=== PATIENT | female | born 1990 | race Caucasian/White ===

== ENCOUNTER 2021-11-05 10:47 | Outpatient (CLI) | payer BC, SELFPAY ==
--- OUTSIDE RECORDS SUMMARY | 2021-11-05 11:01 | XMS_ITS | Clinical Summary ---
:1990 Author Organization [facility] [place] [address] Care Team Providers Name Role Phone Luana Rushing MD Primary Care Provider [phone] Allergies Active Allergy Reactions Severity Noted Date Comments Amoxicillin Shortness Of Breath High 04/24/2012 Penicillins Hives High 04/24/2012 Medications No known medications Active Problems Problem Noted Date Tension headache 03/08/2017 History of concussion Cluster headaches Resolved Problems Problem Noted Date Resolved Date Cluster headaches 03/08/2017 Immunizations Name Administration Dates Next Due DTaP 03/19/1994, 09/20/1990, 1989, 1989, 1989 Hepatitis B (Peds) 02/25/2006, 02/25/2005, 10/28/1999 Hib Conjugate, Unspecified 04/30/1990, 03/04/1990, 0 Human Papilloma Virus Vaccine 10/31/2006, 07/07/2006, 2006 Inactivated Polio Vaccine 03/19/1994, 09/20/1990, 1989 , 1989 Influenza, IIV4 04/05/2012 MMR 03/19/1994, 04/30/1990 Meningococcal Vaccine (Menactra) 04/27/2006 Meningococcal Vaccine (Menomune) 04/27/2006 Td (Age >=7 Years) 07/21/2001 Tdap 07/01/2017, 04/11/2007 Family History Medical History Relation Name Comments Thyroid Disease Brother HIV Father Cancer-colon Mother Clotting disorder Mother Thyroid Disease Mother Thyroid Disease Sister Cancer-breast No Family History Relation Name Status Comments Brother Father Mother Sister Social History Tobacco Use Types Packs/Day Years Used Date Former Smoker Cigarettes 9 Smokeless Tobacco: Never Used Alcohol Use Standard Drinks/Week Comments No 0 (1 standard drink = 0.6 oz pure alcoho l) Sex Assigned at Date Recorded Not on file Obstetrics History Para Term AB IAB SAB Ectopic Multiple Living Live Births 1 Date Outcome GA Total Labor/2nd/3rd Weight Sex Delivery Anes PTL Justina A 1 A5 Name Clin Labor Last Filed Vital Signs Vital Sign Reading Time Taken Comments Blood Pressure 110/70 08/01/2018 12:46 PM CDT Pulse 76 08/01/2018 12:46 PM CDT Temperature 37.2 ??C (99 ??F) 11/16/2017 1:09 PM CDT Respiratory Rate 12 08/01/2018 12:46 PM CDT Oxygen Saturation 97% 11/16/2017 1:09 PM CDT Inhaled Oxygen Concentration - - Weight 87.1 kg (192 lb) 04/25/2018 10:08 AM CDT Height 163.8 cm (5' 4.5) 04/25/2018 10:08 AM CDT Body Mass Index 32.45 04/25/2018 10:08 AM CDT Plan of Treatment Health Maintenance Due Date Last Done Comments COVID-19 vaccine series (#1) 1990 Hepatitis C screening for age 18-79 2007 Pap test for age 21-65 07/09/2017 07/09/2014 (Completed out side of [facility]) BMI (ht and wt on same day) for age 0304/26/2019 04/25/2018, 11/16/2017, 18+ 03/08/2017 Depression screening for age 12+ 04/26/2019 04/25/2018, Influenza for age 9-49 10/15/2021 04/05/2012 Tetanus booster 07/02/2027 07/01/2017, 04/11/2007, 07/21/2001 Tdap Completed 07/01/2017, 04/11/2007 Results Not on filefrom Last 3 Months Insurance Payer Benefit Plan / Subscriber ID Effective Dates Phone Addre ss Type Group [employer] [place] [employer] [id number] 2018-Present [address] [address] [place] [address] Care Teams Melt Helper Relationship Specialty Start Date End Date Luana Rushing MD PCP - General Family Practice 08/01/[address] [place] [address]
--- OUTSIDE RECORDS SUMMARY | 2021-11-05 11:01 | XMS_ITS ---
:1990 External Reference #:[id number] Author Allergies Code Code System Name Reaction Severity Status Onset 723 RxNorm Amoxicillin Hives Severe Active ? Penicillins Hives Severe Active ? Medications Name Status Start Date Stop Date ? ? Childrens Vitamin Completed ? 04/12/2017 clindamycin HCl 300 mg capsule Completed ? 0 04/12/2017 ondansetron 4 mg disintegrating tablet Completed ? 04/16/2020 Pitocin 10 unit/mL injection solution Completed ? 02/19/2021 Take 10 units as needed by injection route as needed for 1 day. + DHA Active ? Not available Problems Name Status Onset Date Source ? Unknown 09/22/2015 ? Unknown 04/12/2017 ? Unknown 04/16/2020 ? Procedures Date Name Performed by ? 04/12/2017 US, Obstetric, 1St Trimester Facilities [facility] [address] [place] [address] (Work Place) 04/16/2020 US, Obstetric, Limited [facility] [address] [facility] [address] [place], [place] [address] (Work Place) 04/18/2020 US, Obstetric, Limited [facility] [address] [facility] [address] [place], [place] [address] (Work Place) 06/26/2020 US, Obstetric In-House Results For Internal Use Onl y Do Not Delete/merge [id number] Notes: [place] teeth extraction Results Lab Results Date Name Specimen Result Interpretation Description Value Range Status Address ? 02/19/2021 Hemoglobin Blood ? Hemoglobin 14.3 ? ? In-House (Hb), Blood capillary Re sults: For Internal U se Only, Do N ot Delete/clif ge 11/20/2020 Streptococcus Vaginal ? Culture, see note ? [facility] Group B, Group B Strep l D iagnostics - Culture, with Akash Escobar Unspecified Susceptibility Lab: [address], [place] 09/01/2020 Hemoglobin Blood ? Hemoglobin 11.8 ? ? In-House (Hb), Blood capillary Re sults: For Internal U se Only, Do N ot Delete/clif ge 09/01/2020 Glucose Blood ? Result after 108 ? ? In-House Tolerance capillary 50Gm Resu lts: For Test, Internal U se Gestational, Only , Do Not 1-Hour Delete/clif ge 04/16/2020 Obstetric Blood Ashley White Blood 5.4 3.8-1 [facility] Screen, Serum venous l Cell Count thousand 0.8 l Diagnostics - or Blood /uL thous Wood Anatoliy e and/u Lab: [address], [place] ? ? Blood Ashley Red Blood 4.27 3.80- [facility] venous l Cell Count million/ 5.10 l Diag nostics - uL ciera [place] on/uL Lab: [address], [place] ? ? Blood Ashley Hemoglobin 13.4 11.7- [facility] venous l g/dL 15.5 l Diagnostic s - g/dL [place] Lab: [address], [place] ? ? Blood Ashley Hematocrit 38.8 % 35.0- [facility] venous l 45.0 l Diagnostic s - % [place] Lab: [address], [place] ? ? Blood Ashley Mcv 90.9 fL 80.0- [facility] venous l 100.0 l Diagnostic s - fL [place] Lab: [address], [place] ? ? Blood Ashley Mch 31.4 pg 27.0- [facility] venous l 33.0 l Diagnostic s - pg [place] Lab: [address], [place] ? ? Blood Ashley Mchc 34.5 32.0- [facility] venous l g/dL 36.0 l Diagnostic s - g/dL [place] Lab: [address], [place] ? ? Blood Ashley Rdw 11.6 % 11.0- [facility] venous l 15.0 l Diagnostic s - % [place] Lab: [address], [place] ? ? Blood Ashley Platelet 268 140-4 [facility] venous l Count thousand 00 l Diagnost ics - /uL thous [place] and/u Lab: [address], [place] ? ? Blood Ashley Mpv 10.7 fL 7.5-1 [facility] venous l 2.5 l Diagnostic s - fL [place] Lab: [address], [place] ? ? Blood Ashley Absolute 3602 1500- [facility] venous l Neutrophils cells/uL 7800 l [facility] - cells [place] /uL Lab: [address], [place] ? ? Blood Ashley Absolute 1285 850-3 [facility] venous l Lymphocytes cells/uL 900 l [facility] - cells [place] /uL Lab: [address], [place] ? ? Blood Ashley Absolute 292 200-9 [facility] venous l Monocytes cells/uL 50 l Diagn ostics - cells [place] /uL Lab: [address], [place] ? ? Blood Ashley Absolute 200 15-50 [facility] venous l Eosinophils cells/uL 0 l [facility] - cells [place] /uL Lab: [address], [place] ? ? Blood Ashley Absolute 22 0-200 [facility] venous l Basophils cells/uL cells l Diagn ostics - /uL [place] Lab: [address], [place] ? ? Blood Ashley Neutrophils 66.7 % ? Lexy Ques t venous l l Diagnostic s - [place] Lab: [address], [place] ? ? Blood Ashley Lymphocytes 23.8 % ? Lex[facility] Ques t venous l l Diagnostic s - [place] Lab: [address], [place] ? ? Blood Ashley Monocytes 5.4 % ? [facility] venous l l Diagnostic s - [place] Lab: [address], [place] ? ? Blood Ashley Eosinophils 3.7 % ? Lex[facility] Ques t venous l l Diagnostic s - [place] Lab: [address], [place] ? ? Blood Ashley Basophils 0.4 % ? [facility] venous l l Diagnostic s - [place] Lab: [address], [place] ? ? Blood Ashley Antibody no ? [facility] venous l Screen, RBC antibodi l [facility] - W/refl Id, es Wood D jorge Titer and Ag detected La b: [address], [place] ? ? Blood ? ABO Group O ? [facility] venous l Diagnostic s - [place] Lab: [address], [place] ? ? Blood ? Rh Type Rh(D) ? [facility] venous positive l Diagnost ics - [place] Lab: [address], [place] ? ? Blood Ashley RPR (DX) non-reac non-r [facility] venous l W/refl Titer tive eacti l Diag nostics - and ve [place] Confirmatory Lab: [address], [place] ? ? Blood Ashley Hepatitis B non-reac non-r Lex[facility] Qu est venous l Surface tive eacti l Diagnosti cs - Antigen ve [place] Lab: [address], [place] ? ? Blood Ashley Rubella Ab 17.10 ? [facility] venous l (IgG), Immune index l [facility] - Status [place] Lab: [address], [place] 04/16/2020 HIV 1+2 Ab + Blood Ashley HIV Ag/Ab, non-reac non-r [facility] HIV1 P24 Ag, venous l 4TH Gen tive eacti l [facility] - Quantitative [facility] Immunoassay, Lab: [address], [place] 04/16/2020 CT + NG RNA, Urine ? Chlamydia not not Fin a [facility] PCR, Vaginal Trachomatis detected detec l Diagnostics - RNA, [facility] [address], [place] ? ? Urine ? Neisseria not not Lex[facility] Parkt Gonorrhoeae detected detec l [facility] - RNA, segundo Sheriff Urogenital Lab: [address], [place] 04/16/2020 Hepatitis C Blood Ashley Hepatitis C non-reac non-r [facility] Virus Ab, venous l Antibody tive eacti l Diagn ostics - Serum ve [place] Lab: [address], [place] ? ? Blood Ashley Index 0.14 <1.00 [facility] venous l l Diagnostic s - [place] Lab: [address], [place] 04/16/2020 beta-HCG, Blood High HCG, Total, 8741 ? [facility] Quantitative, venous Qn mIU/mL l [facility] - Serum or Anatoliy e Plasma Lab: [address], [place] 04/16/2020 HbA1C Blood Ashley Hemoglobin 4.9 % of <5.7 [facility] (Hemoglobin venous l a1C total % of l Diagn ostics - a1C), Blood HGB total [place] HGB Lab: [address], [place] 04/16/2020 Culture, Urine Urine ? Culture, see note ? [facility] Urine, Routine l Di agnostics - [place] Lab: [address], [place] 11/14/2017 Streptococcus Vaginal ? Streptococcus see note ? [facility] Group B, , Group B l Diagn ostics - Culture, Culture Wood Da le Unspecified Lab: [address], [place] 09/08/2017 Glucose ? Result after 130 ? ? In-House Tolerance 50Gm Results : For Test, Internal U se Gestational, Only , Do Not 1-Hour Delete/clif ge 09/08/2017 Hemoglobin ? Hemoglobin 11.5 ? ? In-House (Hb), Blood Resul ts: For Internal U se Only, Do N ot Delete/clif ge 05/18/2017 Aneuploidy Whole Ashley 2816 normal ? [facility] Risk and X & Y Blood l l Analysis, Chromosome Specific Circulating Cell Free (CCF) DNA, Maternal Serum ? ? Whole Ashley Chromosome 21 negative ? Lexy Blood l l ? ? Whole Ashley Chromosome 18 negative ? [facility] Blood l l ? ? Whole Ashley Chromosome 13 negative ? Lex[facility] Blood l l ? ? Whole Ashley Sex negative ? Lex[facility] Blood l Chromosomes l 04/12/2017 Obstetric Blood Ashley White Blood 7.5 3.8-1 [facility] Screen, Serum venous l Cell Count thousand 0.8 l Diagnostics - or Blood /uL thous Anatoliy e and/u Lab: [address], [place] ? ? Blood Ashley Red Blood 4.26 3.80- [facility] venous l Cell Count million/ 5.10 l Diag nostics - uL ciera [place] on/uL Lab: [address], [place] ? ? Blood Ashley Hemoglobin 12.8 11.7- [facility] venous l g/dL 15.5 l Diagnostic s - g/dL [place] Lab: [address], [place] ? ? Blood Ashley Hematocrit 38.1 % 35.0- [facility] venous l 45.0 l Diagnostic s - % [place] Lab: [address], [place] ? ? Blood Ashley Mcv 89.4 fL 80.0- [facility] venous l 100.0 l Diagnostic s - fL [place] Lab: [address], [place] ? ? Blood Ashley Mch 30.0 pg 27.0- [facility] venous l 33.0 l Diagnostic s - pg [place] Lab: [address], [place] ? ? Blood Ashley Mchc 33.6 32.0- [facility] venous l g/dL 36.0 l Diagnostic s - g/dL [place] Lab: [address], [place] ? ? Blood Ashley Rdw 12.1 % 11.0- [facility] venous l 15.0 l Diagnostic s - % [place] Lab: [address], [place] ? ? Blood Ashley Platelet 321 140-4 [facility] venous l Count thousand 00 l Diagnost ics - /uL thous [place] and/u Lab: [address], [place] ? ? Blood Ashley Mpv 10.4 fL 7.5-1 [facility] venous l 2.5 l Diagnostic s - fL [place] Lab: [address], [place] ? ? Blood Ashley Absolute 5085 1500- [facility] venous l Neutrophils cells/uL 7800 l [facility] - cells [place] /uL Lab: [address], [place] ? ? Blood Ashley Absolute 1635 850-3 [facility] venous l Lymphocytes cells/uL 900 l [facility] - cells [place] /uL Lab: [address], [place] ? ? Blood Ashley Absolute 443 200-9 [facility] venous l Monocytes cells/uL 50 l Diagn ostics - cells [place] /uL Lab: [address], [place] ? ? Blood Ashley Absolute 300 15-50 [facility] venous l Eosinophils cells/uL 0 l [facility] - cells [place] /uL Lab: [address], [place] ? ? Blood Ashley Absolute 38 0-200 [facility] venous l Basophils cells/uL cells l Diagn ostics - /uL [place] Lab: [address], [place] ? ? Blood Ashley Neutrophils 67.8 % ? Lex[facility] Ques t venous l l Diagnostic s - [place] Lab: [address], [place] ? ? Blood Ashley Lymphocytes 21.8 % ? Lex[facility] Ques t venous l l Diagnostic s - [place] Lab: [address], [place] ? ? Blood Ashley Monocytes 5.9 % ? [facility] venous l l Diagnostic s - [place] Lab: [address], [place] ? ? Blood Ashley Eosinophils 4.0 % ? Lex[facility] Ques t venous l l Diagnostic s - [place] Lab: [address], [place] ? ? Blood Ashley Basophils 0.5 % ? [facility] venous l l Diagnostic s - [place] Lab: [address], [place] ? ? Blood Ashley Antibody no ? [facility] venous l Screen, RBC antibodi l [facility] - W/refl Id, es Wood D jorge Titer and Ag detected La b: [address], [place] ? ? Blood ? ABO Group O ? [facility] venous l Diagnostic s - [place] Lab: [address], [place] ? ? Blood ? Rh Type Rh(D) ? [facility] venous positive l Diagnost ics - [place] Lab: [address], [place] ? ? Blood Ashley RPR (DX) non-reac non-r [facility] venous l W/refl Titer tive eacti l Diag nostics - and ve [place] Confirmatory Lab: [address], [place] ? ? Blood Ashley Hepatitis B non-reac non-r Lex[facility] Qu est venous l Surface tive eacti l Diagnosti cs - Antigen ve [place] Lab: [address], [place] ? ? Blood Ashley Rubella 8.37 ? [facility] venous l Antibody (IgG) index l Di agnostics - [place] Lab: [address], [place] 04/12/2017 Hepatitis C Blood Ashley Hepatitis C non-reac non-r [facility] Virus Ab, venous l Antibody tive eacti l Diagn ostics - Serum ve [place] Lab: [address], [place] ? ? Blood Ashley Signal to 0.04 <1.00 [facility] venous l Cut-off l Diagnosti cs - [place] Lab: [address], Akash Vasquez 04/12/2017 HIV 1+2 Ab + Blood Ashley HIV Ag/Ab, non-reac non-r [facility] HIV1 P24 Ag, venous l 4TH Gen tive eacti l [facility] - Quantitative ve [place] Immunoassay, Lab: [address], [place] 04/12/2017 HbA1C Blood Ashley Hemoglobin 5.0 % of <5.7 [facility] (Hemoglobin venous l a1C total % of l Diagn ostics - a1C), Blood HGB total [place] HGB Lab: [address], Akash Vasquez 04/12/2017 Culture, Urine Urine ? Culture, see note ? [facility] clean Urine, Routine l Di agnostics - catch [place] Lab: [address], [place] 11/14/2015 Streptococcus Vaginal ? Culture, see note ? [facility] Group B, Group B Strep l D iagnostics Culture, with [facility]: [address], [facility] 09/19/2015 Glucose Blood Ashley Glucose, 95 mg/dL <140 [facility] Tolerance venous l Gestational mg/dL l Di agnostics Test, Screen [facility]: [address] Gestational, (50G)-[address] [facility] [address] [facility] [address] Max Post-50G Cutoff 50, [facility] 09/19/2015 Hemoglobin Blood Low Hemoglobin 11.4 11.7- [facility] (Hb), Blood venous g/dL 15.5 l Diagn ostics g/dL [facility]: [address], [address] 09/19/2015 Hepatitis C Blood Ashley Hepatitis C non-reac non-r [facility] Virus Ab, venous l Antibody tive eacti l Diagn ostics Serum ve [facility]: [address], [facility] st ? ? Blood Ashley Signal to 0.03 <1.00 [facility] venous l Cut-off l Diagnosti cs [facility]: [address], [address] Past Encounters 02/19/2021 Care Brittney Shirley APRN CNM: [address], [place] [address], Ph. 12/15/2020 Care Jennifer Sims APRN CNM: [address], [address], [place] [address], Ph. 12/13/2020 Normal Delivery Procedure; Pain in Pelvi s Brittney Shirley APRN CNM: [address], [place] [address], Ph. 12/12/2020 Routine Care Veronica Botello APRN CNM: [address], [place] [address], Ph. 12/09/2020 Routine Care Luana Hdez APRN CNM: [address], [place] [address], Ph. 11/20/2020 Routine Care; Administration o f Influenza Vaccine Veronica Botello APRN CNM: [address], [address], [place] [address], Ph. 11/04/2020 Routine Care Brittney Shirley APRN CNM: [address], [place] [address], Ph. 10/01/2020 Routine Care Jennifer Sims MEAT MOLDER CNM: [address], [address], [place] [address], Ph. 09/01/2020 Routine Care Veronica Vilma Botello, MEAT MOLDER CNM: [address], [place] [address], Ph. 07/31/2020 Routine Care Brittney Shirley, MEAT MOLDER CNM: [address], [place] [address], Ph. 06/26/2020 Routine Care Niru Robles MEAT MOLDER CNM: [address], [place] [address], Ph. Social History Tobacco Smoking Status Former Smoker Vaccine List Notes: declines Tdap and Flu 2018 Plan of Care Reminders Provider Appointments None recorded. ? ? Lab None recorded. ? ? Referral None recorded. ? ? Procedures None recorded. ? ? Surgeries None recorded. ? ? Imaging None recorded. ? ? Vitals 02/19/2021 10:00AM 6 week post visit Height Weight BMI Blood Pressure 64 in 200 lbs 4 oz 34.4 kg/m2 120/76 mm[Hg] 12/15/2020 10:00AM Home Visit PP Height Blood Pressure 64 in 130/90 mm[Hg] 12/12/2020 08:30PM Visit Height Blood Pressure 64 in 122/83 mm[Hg] 12/09/2020 09:45AM Visit Height Weight BMI Blood Pressure 64 in 221 lbs 4 oz 38 kg/m2 117/79 mm[Hg] 11/20/2020 10:00AM Visit Height Weight BMI Blood Pressure 64 in 216 lbs 37.1 kg/m2 117/75 mm[Hg] 11/04/2020 10:00AM Visit Height Weight BMI Blood Pressure 64 in 215 lbs 36.9 kg/m2 118/82 mm[Hg] 10/01/2020 10:00AM Visit Height Weight BMI Blood Pressure 64 in 204 lbs 8 oz 35.1 kg/m2 118/78 mm[Hg] 09/01/2020 10:15AM Visit Height Weight BMI Blood Pressure 64 in 198 lbs 4 oz 34 kg/m2 113/69 mm[Hg] 07/31/2020 09:00AM Visit Height Weight BMI Blood Pressure 64 in 191 lbs 1.92 oz 32.8 kg/m2 92/50 mm[Hg] 06/26/2020 12:45PM Visit Height Weight BMI Blood Pressure 64 in 184 lbs 31.6 kg/m2 114/72 mm[Hg] 04/16/2020 10:00AM New Visit Height Blood Pressure 64 in 126/84 mm[Hg] 01/31/2018 12:00PM PP-6 weeks Height Weight BMI Blood Pressure 64 in 195 lbs 33.5 kg/m2 116/78 mm[Hg] 12/13/2017 12:00PM Home Visit PP Height Blood Pressure 64 in 117/81 mm[Hg] 12/11/2017 11:30AM Center Encounter Height Blood Pressure 64 in 121/79 mm[Hg] 12/02/2017 10:00AM Visit Height Blood Pressure 64 in 129/80 mm[Hg] 11/14/2017 10:30AM Visit Height Weight BMI Blood Pressure 64 in 219 lbs 37.6 kg/m2 117/68 mm[Hg] 10/21/2017 10:00AM Visit Height Weight BMI Blood Pressure 64 in 214 lbs 36.7 kg/m2 124/68 mm[Hg] 09/29/2017 11:00AM Visit Height Weight BMI Blood Pressure 64 in 208 lbs 35.7 kg/m2 122/73 mm[Hg] 09/08/2017 11:15AM Lab or Injection Visit Height 64 in 08/29/2017 03:30PM Visit Height Weight BMI Blood Pressure 64 in 204 lbs 35 kg/m2 120/70 mm[Hg] 07/21/2017 09:00AM Visit Height Weight BMI Blood Pressure 64 in 197 lbs 33.8 kg/m2 135/83 mm[Hg] 06/13/2017 11:30AM Visit Height Weight BMI Blood Pressure 64 in 195 lbs 33.5 kg/m2 119/75 mm[Hg] 05/17/2017 11:00AM Visit Height Weight BMI Blood Pressure 64 in 194 lbs 33.3 kg/m2 121/82 mm[Hg] 04/12/2017 02:00PM New Visit Height 64 in 01/22/2016 11:30AM PP-6 weeks Height Weight BMI Blood Pressure 64 in 188 lbs 32.3 kg/m2 100/72 mm[Hg] 12/23/2015 10:30AM PP-2 weeks Height Weight BMI Blood Pressure 64 in 188 lbs 32.3 kg/m2 116/82 mm[Hg] 12/05/2015 11:00AM Visit Height Weight BMI Blood Pressure 64 in 209 lbs 35.9 kg/m2 112/78 mm[Hg] 11/27/2015 09:00AM Visit Height Weight BMI Blood Pressure 64 in 209 lbs 35.9 kg/m2 126/76 mm[Hg] 11/21/2015 10:30AM Visit Height Weight BMI Blood Pressure 64 in 203 lbs 34.8 kg/m2 116/84 mm[Hg] 11/14/2015 11:00AM Visit Height Weight BMI Blood Pressure 64 in 206 lbs 35.4 kg/m2 114/76 mm[Hg] 10/24/2015 11:00AM Visit Height Weight BMI Blood Pressure 64 in 199 lbs 3.2 oz 34.2 kg/m2 122/70 mm[Hg] 10/03/2015 11:00AM Visit Height Weight BMI Blood Pressure 64 in 192 lbs 12.8 oz 33.1 kg/m2 120/72 mm[Hg] 09/19/2015 Weight Blood Pressure 190 lbs 113/73 mm[Hg] 09/19/2015 11:00AM Transfer Height Weight BMI Blood Pressure 64 in 189 lbs 16 oz 32.6 kg/m2 113/73 mm[Hg]
[2021-11-05 17:23] LABS: Albumin* 4.8 g/dL (3.3-5.0)
[2021-11-05 17:24] LABS: Chloride* 104 mmol/L (96-114); Iron* 84 ug/dL (37-170); Potassium* 4.5 mmol/L (3.6-5.1); Sodium* 136 mmol/L (135-149)
[2021-11-05 17:26] LABS: Cholesterol* 204 mg/dL (90-199); Creatinine* 0.6 mg/dL (0.5-1.5); Estimated Glomerular Filt Rate 122 ml/min
[2021-11-05 17:27] LABS: Alanine Aminotransferase* 26 U/L (4-35); Alkaline Phosphatase* 89 U/L (40-150); Aspartate Amino Transferase* 31 U/L (12-35); Bilirubin Total* 0.7 mg/dL (0.1-1.5); Blood Urea Nitrogen* 11 mg/dL (5-24); Calcium* 9.4 mg/dL (8.4-10.6); Carbon Dioxide* 23 mmol/L (20-32); Glucose* 93 mg/dL (60-115); Total Protein* 7.7 g/dL (6.0-8.3); Triglycerides* 131 mg/dL (40-149)
[2021-11-05 17:28] LABS: HDL Cholesterol* 60 mg/dL (>=50); LDL Cholesterol Calculated 118 mg/dL (<100)
[2021-11-05 17:34] LABS: Percent Iron Saturation 19 % (20-50); Total Iron Binding Capacity 442 ug/dL (265-497)
[2021-11-05 18:01] LABS: Ferritin* 21.7 ng/mL (6.24-137.0)
== END 2021-11-05 10:48 | disposition home or self-care (01) ==
PROVIDERS: PCP Family Medicine; Visit Provider Nurse Practitioner Family
DX: Z01.419 Encounter for gynecological examination (general) (routine) without abnormal findings (principal); R53.83 Other fatigue; Z13.6 Encounter for screening for cardiovascular disorders
CPT/HCPCS: 80053; 80061; 82728; 83540; 83550; 84443

== ENCOUNTER 2021-12-15 11:28 | Outpatient (CLI) | payer BC, SELFPAY ==
--- OUTSIDE RECORDS SUMMARY | 2021-12-15 11:30 | XMS_ITS ---
[...] by ? 04/12/2017 US, Obstetric, 1St Trimester Data Control Assistant Spec ialists [address] [place] [address] (Work Place) 04/16/2020 US, Obstetric, Limited [facility] [address] [facility] [address] [place], [place] [address] (Work Place) 04/18/2020 US, Obstetric, Limited [facility] [address] [facility] [address] [place], [place] [address] (Work Place) 06/26/2020 US, Obstetric In-House Results For Internal Use Onl y Do Not Delete/merge [id number] Notes: [place] teeth extraction Results Lab Results Date Name [...] Susceptibility Lab: [address], [place] 09/01/2020 Hemoglobin Blood ? Hemoglobin 11.8 ? [...] and/u Lab: [address], [place] ? ? Blood Ashley Red Blood 4.27 3.80- [facility] venous l Cell Count million/ 5.10 l Diag nostics - uL ciera [place] on/uL Lab: [address], [place] ? ? Blood Ashley Hemoglobin 13.4 11.7- [facility] venous l g/dL 15.5 l Diagnostic s - g/dL [place] Lab: [address], [place] ? ? Blood Ashley Hematocrit 38.8 % 35.0- [facility] venous l 45.0 l Diagnostic s - % [place] Lab: [address], [place] ? ? Blood Ashley Mcv 90.9 fL 80.0- [facility] venous l 100.0 l Diagnostic s - fL [place] Lab: [address], [place] ? ? Blood Ashley Mch 31.4 pg 27.0- [facility] venous l 33.0 l Diagnostic s - pg [place] Lab: [address], [place] ? ? Blood Ashley Mchc 34.5 32.0- [facility] venous l g/dL 36.0 l Diagnostic s - g/dL [place] Lab: [address], [place] ? ? Blood Ashley Rdw 11.6 % 11.0- [facility] venous l 15.0 l Diagnostic s - % [place] Lab: [address], [place] ? ? Blood Ashley Platelet 268 140-4 [facility] venous l Count thousand 00 l Diagnost ics - /uL thous [place] and/u Lab: [address], [place] ? ? Blood Ashley Mpv 10.7 fL 7.5-1 [facility] venous l 2.5 l Diagnostic s - fL [place] Lab: [address], [place] ? ? Blood Ashley Absolute 3602 1500- [facility] venous l Neutrophils cells/uL 7800 l [facility] - cells [place] /uL Lab: [address], [place] ? ? Blood Ashley Absolute 1285 850-3 [facility] venous l Lymphocytes cells/uL 900 l [facility] - cells [place] /uL Lab: [address], [place] ? ? Blood Ashley Absolute 292 200-9 [facility] venous l Monocytes cells/uL 50 l Diagn ostics - cells [place] /uL Lab: [address], [place] ? ? Blood Ashley Absolute 200 15-50 [facility] venous l Eosinophils cells/uL 0 l [facility] - cells [place] /uL Lab: [address], [place] ? ? Blood Ashley Absolute 22 0-200 [facility] venous l Basophils cells/uL cells l Diagn ostics - /uL [place] Lab: [address], [place] ? ? Blood Ashley Neutrophils 66.7 % ? [facility] t venous l l Diagnostic s - [place] Lab: [address], [place] ? ? Blood Ashley Lymphocytes 23.8 % ? [facility] t venous l l Diagnostic s - [place] Lab: [address], [place] ? ? Blood Ashley Monocytes 5.4 % ? [facility] venous l l Diagnostic s - [place] Lab: [address], [place] ? ? Blood Ashley Eosinophils 3.7 % ? [facility] venous l l Diagnostic s - [place] Lab: [address], [place] ? ? Blood Ashley Basophils 0.4 % ? [facility] venous l l Diagnostic s - [place] Lab: [address], [place] ? ? Blood Ashley Antibody no ? [facility] venous l Screen, RBC antibodi l [facility] - W/refl Id, es Wood D jorge Titer and Ag detected La b: [address], [place] ? ? Blood ? ABO Group O ? [facility] venous l Diagnostic s - [place] Lab: [address], [place] ? ? Blood ? Rh Type Rh(D) ? [facility] venous positive l Diagnost ics - [place] Lab: [address], [place] ? ? Blood Ashley RPR (DX) non-reac non-r [facility] venous l W/refl Titer tive eacti l Diag nostics - and ve [place] Confirmatory Lab: [address], [place] ? ? Blood Ashley Hepatitis B non-reac non-r [facility] est venous l Surface tive eacti l Diagnosti cs - Antigen ve [place] Lab: [address], [place] ? ? Blood Ashley Rubella Ab 17.10 ? [facility] venous l (IgG), Immune index l [facility] - Status [place] Lab: [address], [place] 04/16/2020 HIV 1+2 Ab + Blood Ashley HIV Ag/Ab, non-reac non-r [facility] HIV1 P24 Ag, venous l 4TH Gen tive eacti l [facility] - Quantitative [facility] Immunoassay, Lab: [address], [place] 04/16/2020 CT + NG RNA, Urine ? Chlamydia not not [facility] PCR, Vaginal Trachomatis detected detec l Diagnostics - RNA, [facility] [address], [place] ? ? Urine ? Neisseria not not Lex[facility] Curbside Gonorrhoeae detected detec l [facility] - RNA, segundo Sheriff Urogenital Lab: [address], [place] 04/16/2020 Hepatitis C Blood Ashley Hepatitis C non-reac non-r [facility] Virus Ab, venous l Antibody tive eacti l Diagn ostics - Serum ve [place] Lab: [address], [place] ? ? Blood Ashley Index 0.14 <1.00 [facility] venous l l Diagnostic s - [place] Lab: [address], [place] 04/16/2020 beta-HCG, Blood High HCG, Total, 8741 ? [facility] Quantitative, venous Qn mIU/mL l [facility] - Serum or Anatoliy e Plasma Lab: [address], [place] 04/16/2020 HbA1C Blood Ashley Hemoglobin 4.9 % of <5.7 [facility] (Hemoglobin venous l a1C total % of l Diagn ostics - a1C), Blood HGB total [place] HGB Lab: [address], [place] 04/16/2020 Culture, Urine Urine ? Culture, see note ? [facility] Urine, Routine l Di agnostics - [place] Lab: [address], [place] 11/14/2017 Streptococcus Vaginal ? Streptococcus see note ? [facility] Group B, , Group B l Diagn ostics - Culture, Culture Wood Da le Unspecified Lab: [address], [place] 09/08/2017 Glucose ? Result after 130 ? [...] and/u Lab: [address], [place] ? ? Blood Ashley Red Blood 4.26 3.80- [facility] venous l Cell Count million/ 5.10 l Diag nostics - uL ciera [place] on/uL Lab: [address], [place] ? ? Blood Ashley Hemoglobin 12.8 11.7- [facility] venous l g/dL 15.5 l Diagnostic s - g/dL [place] Lab: [address], [place] ? ? Blood Ashley Hematocrit 38.1 % 35.0- [facility] venous l 45.0 l Diagnostic s - % [place] Lab: [address], [place] ? ? Blood Ashley Mcv 89.4 fL 80.0- [facility] venous l 100.0 l Diagnostic s - fL [place] Lab: [address], [place] ? ? Blood Ashley Mch 30.0 pg 27.0- [facility] venous l 33.0 l Diagnostic s - pg [place] Lab: [address], [place] ? ? Blood Ashley Mchc 33.6 32.0- [facility] venous l g/dL 36.0 l Diagnostic s - g/dL [place] Lab: [address], [place] ? ? Blood Ashley Rdw 12.1 % 11.0- [facility] venous l 15.0 l Diagnostic s - % [place] Lab: [address], [place] ? ? Blood Ashley Platelet 321 140-4 [facility] venous l Count thousand 00 l Diagnost ics - /uL thous [place] and/u Lab: [address], [place] ? ? Blood Ashley Mpv 10.4 fL 7.5-1 [facility] venous l 2.5 l Diagnostic s - fL [place] Lab: [address], [place] ? ? Blood Ashley Absolute 5085 1500- [facility] venous l Neutrophils cells/uL 7800 l [facility] - cells [place] /uL Lab: [address], [place] ? ? Blood Ashley Absolute 1635 850-3 [facility] venous l Lymphocytes cells/uL 900 l [facility] - cells [place] /uL Lab: [address], [place] ? ? Blood Aslhey Absolute 443 200-9 [facility] venous l Monocytes cells/uL 50 l Diagn ostics - cells [place] /uL Lab: [address], [place] ? ? Blood Ashley Absolute 300 15-50 [facility] venous l Eosinophils cells/uL 0 l [facility] - cells [place] /uL Lab: [address], [place] ? ? Blood Ashley Absolute 38 0-200 [facility] venous l Basophils cells/uL cells l Diagn ostics - /uL [place] Lab: [address], [place] ? ? Blood Ashley Neutrophils 67.8 % ? [facility] venous l l Diagnostic s - [place] Lab: [address], [place] ? ? Blood Ashley Lymphocytes 21.8 % ? [facility] venous l l Diagnostic s - [place] Lab: [address], [place] ? ? Blood Ashley Monocytes 5.9 % ? [facility] venous l l Diagnostic s - [place] Lab: [address], [place] ? ? Blood Ashley Eosinophils 4.0 % ? [facility] t venous l l Diagnostic s - [place] Lab: [address], [place] ? ? Blood Ashley Basophils 0.5 % ? [facility] venous l l Diagnostic s - [place] Lab: [address], [place] ? ? Blood Ashley Antibody no ? [facility] venous l Screen, RBC antibodi l [facility] - W/refl Id, es Wood D jorge Titer and Ag detected La b: [address], [place] ? ? Blood ? ABO Group O ? [facility] venous l Diagnostic s - [place] Lab: [address], [place] ? ? Blood ? Rh Type Rh(D) ? [facility] venous positive l Diagnost ics - [place] Lab: [address], [place] ? ? Blood Ashley RPR (DX) non-reac non-r [facility] venous l W/refl Titer tive eacti l Diag nostics - and ve [place] Confirmatory Lab: [address], [place] ? ? Blood Ashley Hepatitis B non-reac non-r [facility] venous l Surface tive eacti l Diagnosti cs - Antigen ve [place] Lab: [address], [place] ? ? Blood Ashley Rubella 8.37 ? [facility] venous l Antibody (IgG) index l Di agnostics - [place] Lab: [address], [place] 04/12/2017 Hepatitis C Blood Ashley Hepatitis C non-reac non-r [facility] Virus Ab, venous l Antibody tive eacti l Diagn ostics - Serum ve [place] Lab: [address], [place] ? ? Blood Ashley Signal to 0.04 <1.00 [facility] venous l Cut-off l Diagnosti cs - [place] Lab: [address], [place]ash Vasquez 04/12/2017 HIV 1+2 Ab + Blood Ashley HIV Ag/Ab, non-reac non-r [facility] HIV1 P24 Ag, venous l 4TH Gen tive eacti l [facility] - Quantitative ve [place] Immunoassay, Lab: [address], [place] 04/12/2017 HbA1C Blood Ashley Hemoglobin 5.0 % of <5.7 [facility] (Hemoglobin venous l a1C total % of l Diagn ostics - a1C), Blood HGB total [place] HGB Lab: [address], Akash Vasquez 04/12/2017 Culture, Urine Urine ? Culture, see note ? [facility] clean Urine, Routine l Di agnostics - catch [place] Lab: [address], [place] 11/14/2015 Streptococcus Vaginal ? Culture, see note ? [facility] Group B, Group B Strep l D iagnostics Culture, with [facility]: [address], [facility] urst 09/19/2015 Glucose Blood Ashley Glucose, 95 mg/dL <140 [facility] Tolerance venous l Gestational mg/dL l Di agnostics Test, Screen [facility]: [address] Gestational, (50G)-[address] [facility] [address] Post-50G Cutoff 50, [facility] urst 09/19/2015 Hemoglobin Blood Low Hemoglobin 11.4 11.7- [facility] (Hb), Blood venous g/dL 15.5 l Diagn ostics g/dL [facility]: [address], [address] 09/19/2015 Hepatitis C Blood Ashley Hepatitis C non-reac non-r [facility] Virus Ab, venous l Antibody tive eacti l Diagn ostics Serum ve [facility]: [address], [facility] [address] ? ? Blood Ashley Signal to 0.03 <1.00 [facility] venous l Cut-off l Diagnosti cs [facility]: [address], [address] Past Encounters 02/19/2021 Care Brittney Shirley APRN CNM: [address], [address], [place] [address], Ph. 12/15/2020 Care Jennifer Sims APRN CNM: [address], [address], [place] [address], Ph. 12/13/2020 Normal Delivery Procedure; Pain in Pelvi s Brittney Shirley APRN CNM: [address], [place] [address], Ph. 12/12/2020 Routine Care Veronica Botello APRN CNM: [address], [place] [address], Ph. 12/09/2020 Routine Care Luana Hdez APRN CNM: [address], [place] [address], Ph. 11/20/2020 Routine Care; Administration o f Influenza Vaccine Veronica Botello APRN CNM: [address], [place] [address], Ph. 11/04/2020 Routine Care Brittney Shirley APRN CNM: [address] [address], Ph. 10/01/2020 Routine Care Jennifer Sims SPORT INTERN CNM: [address], [address], [place] [address], Ph. 09/01/2020 Routine Care Veronica Vilma Botello, SPORT INTERN CNM: [address], [place] [address], Ph. 07/31/2020 Routine Care Brittney Shirley, SPORT INTERN CNM: [address], [place] [address], Ph. 06/26/2020 Routine Care Niru Robles SP[employer] INTERN CNM: [address], [place] [address], Ph. Social History Tobacco Smoking Status Former [...]
--- OUTSIDE RECORDS SUMMARY | 2021-12-15 11:30 | XMS_ITS | Clinical Summary ---
:1990 Author Organization [facility] [place] [address] Care Team Providers Name Role Phone Luana Rushing MD Primary Care Provider [phone] Allergies Active Allergy Reactions Severity Noted Date [...] Type Group [employer] [id number] 2018-Present [address] [address] [place] [address] Care Teams Pearl Cutter Relationship Specialty Start Date End Date Luana Rushing MD PCP - General Family Practice 08/01/[address] [place] [address]
== END 2021-12-15 11:29 | disposition home or self-care (01) ==
LOC: OP CLINIC 11:28
PROVIDERS: PCP Family Medicine; Visit Provider Surgery
DX: Z12.11 Encounter for screening for malignant neoplasm of colon (principal); K63.5 Polyp of colon; K62.1 Rectal polyp; Z83.71 Family history of colonic polyps
CPT/HCPCS: 45385; 88305; 99153; J2250; J2405; J3010

== ENCOUNTER 2023-10-13 10:49 | Outpatient (CLI) | payer BC, SELFPAY ==
--- OUTSIDE RECORDS SUMMARY | 2023-10-13 10:53 | XMS_ITS | Referral Summary ---
Author Organization [facility] Address [address] [place] [address] Care Team Providers Care State Patrol Officer Name Role Phone No Ref-Primary, Physician Primary Care Provider Allergies Active Allergy Reactions Criticality Noted Date Comments Amoxicillin 03/18/2012 Penicillins 03/18/2012 Medications Medication Sig Dispensed Refills Start Date End Date Status Vit-Fe Fumarate-FA ( VITAMIN PO) Active acetaminophen (TYLENOL) 325 MG tabletIndications:T ype I or II open fracture of distal pole of patella, unspecified laterality, initial encounter,Knee laceration, left, initial encounter Take 3 tablets (975 mg) by mouth every 8 hours 30 tablet 12/29/2022 Active aspirin 81 MG EC tabletIndications:V TE Prophylaxis Take 1 tablet (81 mg) by mouth 2 times daily 60 tablet 12/29/2022 Active HYDROmorphone (DILAUDID) 2 MG tabletIndications:T ype I or II open fracture of distal pole of patella, unspecified laterality, initial encounter,Knee laceration, left, initial encounter Take 1-2 tablets (2-4 mg) by mouth every 4 hours as needed for moderate pain or severe pain 1 tab po q 4 hrs prn pain scale 3-6 2 tabs po q 4 hrs prn pain scale 7-10 25 tablet 12/29/2022 Active ondansetron (ZOFRAN ODT) 4 MG ODT tabIndications:Type I or II open fracture of distal pole of patella, unspecified laterality, initial encounter,Knee laceration, left, initial encounter Take 1 tablet (4 mg) by mouth every 6 hours as needed for nausea or vomiting 8 tablet 12/29/2022 Active senna-docusate (SENOKOT-S/PERICOLA CE) 8.6-50 MG tabletIndications:T ype I or II open fracture of distal pole of patella, unspecified laterality, initial encounter,Knee laceration, left, initial encounter Take 1 tablet by mouth 2 times daily as needed for constipation 20 tablet 12/29/2022 Active Active Problems Problem Noted Date Diagnosed Date Type I or II open fracture o f distal pole of patella, unspecified laterality, initial encounter 12/27/2022 care, subsequent 09/01/2015 Other normal , not first 05/06/2015 CARDIOVASCULAR SCREENING; LDL GOAL LESS THAN 160 Immunizations Name Administration Dates Next Due DTAP (<7y) 03/19/1994, 1,1989,1989, HIB (PRP-T) 04/30/1990,03/04/1990,1989 HPV 10/31/2006,07/07/2006,04/27/2006 HepB 02/25/2006,02/25/2005,10/28/1999 Influenza (IIV3) PF 04/05/2012 MMR 03/19/1994,04/30/1990 Meningococcal (Menomune??) 04/27/2006 Poliovirus, inactivated (IPV) 03/19/1994, 991,1989,1989 TD,PF 7+ (Tenivac) 07/21/2001 TDAP (Adacel,Boostrix) 12/27/2022,04/11/2007 Social History Tobacco Use Types Packs/Day Years Used Date Smoking Tobacco: Former Cigarettes 0.2 9 0 03/28/2006 - 03/28/2015 Smokeless Tobacco: Never Tobacco Cessation:Counseling Given: Yes Alcohol Use Standard Drinks/Week Comments No 0 (1 standard drink = 0.6 oz pur e alcohol) Adolescent Education Answer Date Record ed Getting School Help Needed Not on file 12/27 Sex and Gender Information Value Date Recorded Sex Assigned at Not on file Gender Identity Not on file Sexual Orientation Not on file Last Filed Vital Signs Vital Sign Reading Time Taken Comments Blood Pressure 120/83 12/29/2022 12:41 AM DRAPERY SEAMSTRESS Pulse 77 12/29/2022 12:41 AM DRAPERY SEAMSTRESS Temperature 36.7 ??C (98 ??F) 12/28/2022 8:28 PM DRAPERY SEAMSTRESS Respiratory Rate 17 12/29/2022 12:4 1 AM DRAPERY SEAMSTRESS Oxygen Saturation 100% 12/29/2022 12: 41 AM DRAPERY SEAMSTRESS Inhaled Oxygen Concentration - - Weight 80.6 kg (177 lb 11.1 oz) 12/27/2022 8:31 PM DRAPERY SEAMSTRESS Height 162.6 cm (5' 4) 12/27/2022 8:31 PM DRAPERY SEAMSTRESS Body Mass Index 30.5 12/27/2022 8:31 PM DRAPERY SEAMSTRESS Plan of Treatment Not on file Procedures Procedure Name Priority Date/Time Associated Diagnosis Comments HIV ANTIGEN ANTIBODY COMBO Routine 05/06/2015 10:57 AM CDT Other normal , not first PAP IMAGED THIN LAYER SCREEN Routine 07/09/2014 12:00 AM CDT Routine general medical examination at a health care facility from Last 3 Months or Most Recently Relevant to Health Maintenance Results * HIV Antigen Antibody Combo (05/06/2015 10:57 AM CDT) HIV Antigen Antibody Combo Nonreactive HIV-1 p24 Ag & HIV-1/HIV-2 Ab Not Detected NR [facility] Blood specimen (specimen) 05/06/2015 10:57 AM CDT 05/06/2015 11:02 AM CDT Lexi Delaney MD LAB - BLOOD LIONEL COLÓN [address] [address] * PAP imaged thin layer, screen (07/09/2014 12:00 AM CDT) PAP FRANCO Yan Report Patient Name: DOMENICA GREEN MR#: [id number] Specimen #: [id number] Collected: 07/09/2014 Received: 07/10/2014 Reported: 07/11/2014 14:09 Ordering Phy(s): KALLIE GAY SPECIMEN/STAIN PROCESS: Pap imaged thin layer prep screening (Surepath, FocalPoint with guided screening) ? Pap-Cyto x 1 SOURCE: Cervical, endocervical Pap imaged thin layer prep screening (Surepath, FocalPoint with guided screening) SPECIMEN ADEQUACY: Satisfactory for evaluation. -Transformation zone component present. CYTOLOGIC INTERPRETATION: Negative for Intraepithelial Lesion or Malignancy Electronically signed out by: KATLYN Pollock ( ASCP) Processed and screened at [facility] CLINICAL HISTORY: LMP: 06/25/14 Previous HPV Positive: HPV as a younger person but went away, Papanicolaou Test Limitations: ??Cervical cytology is a screening test with limited sensitivity; regular screening is critical for cancer prevention; Pap tests are primarily effective for the diagnosis/preventi on of squamous cell carcinoma, not adenocarcinomas or other cancers. TESTING LAB LOCATION: [address] ??[id number] COLLECTION SITE: Client: ??[facility] Location: [place] YAN (R) Cytologic material (specimen) 07/09/2014 07/10/2014 12:16 PM CDT Kallie Gay APRN, CNP LAB - OPTIME CLINICAL SPECIMEN COPATH from Last 3 Months or Most Recently Relevant to Health Maintenance Advance Directives For more information, please contact: [phone] * Full Code (Latest Code Status on File) Date Activated Date Inactivated Comments 12/27/2022 5:53 PM 12/29/2022 4:03 PM All basic and advanced life-sustaining interventions are performed as appropriate Question Answer Comments Code status determined by: Discussion with klevere nt/ legal decision maker Care Teams State Patrol Officer Relationship Specialty Start Date End Date No Ref-Primary, Physician PCP - General 12/27/22
--- OUTSIDE RECORDS SUMMARY | 2023-10-13 10:53 | XMS_ITS | Clinical Summary ---
Author Organization [facility] Address [address] [place] [id number] Care Team Providers Care Screen Tender Helper Name Role Phone No Ref-Primary, Physician Primary [...] TD,PF 7+ (Tenivac) 07/21/2001 TDAP (Adacel,Boostrix) 12/27/2022,04/11/2007 Family History Medical History Relation Comments Thyroid Disease Brother Coronary Artery Disease Maternal Grandfather evelia d bypass Neurologic Disorder Maternal Grandfather tamika on Diabetes Maternal Grandmother Neurologic Disorder Maternal Grandmother Blood Disease Mother needed frequent transfusion after surgery etc Gastrointestinal Disease Mother unable to eat, blood clots Musculoskeletal Disorder Mother Thyroid Disease Mother Relation Status Comments Brother Alive Daughter Alive Father Alive Maternal Grandfather Alive Maternal Grandmother Alive Mother (Age 47) Blood clots Paternal Grandfather Alive Paternal Grandmother Alive Sister 1 Alive Sister 2 Alive Sister 3 Alive Social History Tobacco Use Types Packs/Day Years [...] Comments Blood Pressure 120/83 12/29/2022 12:41 AM MERCHANDISE SUPERVISOR Pulse 77 12/29/2022 12:41 AM MERCHANDISE SUPERVISOR Temperature 36.7 ??C (98 ??F) 12/28/2022 8:28 PM MERCHANDISE SUPERVISOR Respiratory Rate 17 12/29/2022 12:4 1 AM MERCHANDISE SUPERVISOR Oxygen Saturation 100% 12/29/2022 12: 41 AM MERCHANDISE SUPERVISOR Inhaled Oxygen Concentration - - Weight 80.6 kg (177 lb 11.1 oz) 12/27/2022 8:31 PM MERCHANDISE SUPERVISOR Height 162.6 cm (5' 4) 12/27/2022 8:31 PM MERCHANDISE SUPERVISOR Body Mass Index 30.5 12/27/2022 8:31 PM MERCHANDISE SUPERVISOR Plan of Treatment Health Maintenance Due Date Last Done Comments ADVANCE CARE PLANNING 1989 ANNUAL REVIEW OF HM ORDERS 1989 HEPATITIS C SCREENING 2007 YEARLY PREVENTIVE VISIT 07/10/2015 07/09/2014 PAP 07/09/2017 07/09/2014 COVID-19 Vaccine ( season) 2022 PHQ-2 (once per calendar year) 2023 INFLUENZA VACCINE (#1) 2023 3, 04/05/2012, 04/05/2012, Additional history exists DTAP/TDAP/TD IMMUNIZATION (9 - Td or Tdap) 12/27/2032 12/27/2022, 07/01/2017, 04/11/2007, Additional history exists HEPATITIS B IMMUNIZATION Completed 007, 02/25/2006, 02/25/2005, Additional history exists MENINGITIS IMMUNIZATION Aged Out 04/27/2006, 04/27 No longer eligible based on patient's age to complete this topic HPV IMMUNIZATION Completed 10/31/2006, , 07/07/2006, Additional history exists HIV SCREENING Completed 05/06/2015 Pneumococcal Vaccine: Pediatrics (0 to 5 Years) and At-Risk Patients (6 to 64 Years) Aged Out No longer eligible based on patient's age to complete this topic RSV MONOCLONAL ANTIBODY Aged Out No l onger eligible based on patient's age to complete this topic Procedures Procedure Name Priority Date/Time Associated Diagnosis [...] Ag & HIV-1/HIV-2 Ab Not Detected NR [facility] Blood specimen (specimen) 05/06/2015 10:57 AM CDT 05/06/2015 11:02 AM CDT Lexi Delaney MD LAB - BLOOD LIONEL COLÓN [facility] [address] [place] [address] * PAP imaged thin layer, screen (07/09/2014 12:00 AM CDT) PAP FRANCO Yan Report Patient Name: DOMENICA GREEN MR#: [id number] Specimen #: [id number] Collected: 07/09/2014 Received: 07/10/2014 Reported: 07/11/2014 14:09 [...] Pollock ( ASCP) Processed and screened at [facility] CLINICAL HISTORY: LMP: 06/25/14 Previous HPV Positive: HPV as a younger person but went away, Papanicolaou Test Limitations: ??Cervical cytology is a screening test with limited sensitivity; regular screening is critical for cancer prevention; Pap tests are primarily effective for the diagnosis/preventi on of squamous cell carcinoma, not adenocarcinomas or other cancers. TESTING LAB LOCATION: [facility] [address] [place], [place] ??[address] COLLECTION SITE: Client: ??[facility] Location: [place] (R) Cytologic material (specimen) 07/09/2014 07/10/2014 12:16 PM CDT Kallie Gay APRN OFFICE RENTAL CLERK LAB - OPTIME CLINICAL SPECIMEN COPATH from Last 3 Months or Most Recently Relevant to Health Maintenance Advance Directives For more information, please contact: [phone] * Full Code (Latest Code Status on File) Date Activated Date Inactivated Comments 12/27/2022 5:53 PM 12/29/2022 4:03 PM All basic and advanced life-sustaining interventions are performed as appropriate Question Answer Comments Code status determined by: Discussion with klevere nt/ legal decision maker Care Teams Screen Tender Helper Relationship Specialty Start Date End Date No Ref-Primary, Physician PCP - General 12/27/22
--- OUTSIDE RECORDS SUMMARY | 2023-10-13 10:53 | XMS_ITS | Clinical Summary ---
Author Organization [facility] Address [place], [place] [address] Care Team Providers Care Beamer Hand Name Role Phone Luana Rushing MD Primary Care Prov ider Allergies Active Allergy Reactions Criticality Noted Date Comments Amoxicillin Shortness Of Breath High 04/24/2012 Penicillins Hives High 04/24/2012 Medications No known medications Active Problems Problem Noted Date Diagnosed Date Tension headache 03/08/2017 History of concussion Cluster headaches Resolved Problems Problem Noted Date Diagnosed Date Resolved Date Cluster headaches 03/08/2017 Immunizations Name Administration Dates Next Due DTaP 03/19/1994, 1,1989,1989 ,1989 Hepatitis B (Peds) 02/25/2006,02/25/2005, 000 Hib Conjugate, Unspecified 04/30/1990,03/04/1990 ,1989 Human Papilloma Virus Vaccine 10/31/2006, 007,04/27/2006 Inactivated Polio Vaccine 03/19/1994,09/20/1990, 1989,1989 Influenza, IIV4 04/05/2012 MMR 03/19/1994,04/30/1990 Meningococcal Vaccine (Menactra) 04/27/2006 Meningococcal Vaccine (Menomune) 04/27/2006 Td (Age >=7 Years) 07/21/2001 Tdap 07/01/2017,04/11/2007 Family History Medical History Relation Name Comments Thyroid Disease Brother HIV Father Cancer-colon Mother Clotting disorder Mother Thyroid Disease Mother Thyroid Disease Sister Cancer-breast No Family History Relation Name Status Comments Brother Father Mother Sister Social History Tobacco Use Types Packs/Day Years Used Date Smoking Tobacco: Former Cigarettes Smokeless Tobacco: Never Alcohol Use Standard Drinks/Week Comments No 0 (1 standard drink = 0.6 oz pur e alcohol) PHQ-2 Answer Date Recorded PHQ-2 Score 0 04/25/2018 Sex and Gender Information Value Date Recorded Sex Assigned at Not on file Gender Identity Not on file Sexual Orientation Not on file Obstetrics History Para Term AB IAB SAB Ectopic Multiple Livin g Live Births 1 Date Outcome GA Total Labor Labor/2nd/3rd Weight Sex Type Anes PTL Justina A1 A5 Name Clin Last Filed Vital Signs Vital Sign Reading [...] 163.8 cm (5' 4.5) 04/25/2018 10:08 AM CD T Body Mass Index 32.45 04/25/2018 10:08 AM CDT Plan of Treatment Health Maintenance Due Date Last Done Comments HIV for age 15-65 2004 Hepatitis C screening for age 18-79 2007 Pap test for age 21-65 07/09/2017 5 (Completed outside of [facility]) BMI (ht and wt on same day) for age 18+ 04/26/2019 04/25/2018, 11/16/2017, 03/08/2017 Depression screening for age 12+ 04/26/2019 04/25/2018, 03/08/2017 COVID-19 vaccine series (2022- season) 2022 Influenza for age 9-49 10/16/2023 04/05/2012 Tetanus booster 07/02/2027 07/01/2017, 03/18, 07/21/2001 Tdap Completed 07/01/2017, 04/11/2007 Pneumococcal series for age 6-64 Aged Out No longer eligible based on patient's age to complete this topic Care Teams Beamer Hand Relationship Specialty Start Date End Date Luana Rushing MD [address] [place], [place] [id number] PCP - General Family Practice 08/01/18
== END 2023-10-13 10:50 | disposition home or self-care (01) ==
PROVIDERS: PCP Nurse Practitioner Family; Visit Provider Nurse Practitioner Family
DX: D50.9 Iron deficiency anemia, unspecified (principal); R53.83 Other fatigue
CPT/HCPCS: 82728; 84443

== ENCOUNTER 2024-12-23 16:04 | Emergency (ER) | payer BC, SELFPAY ==
--- OUTSIDE RECORDS SUMMARY | 2024-12-23 16:05 | XMS_ITS | Clinical Summary ---
Author Organization [facility] Address [address] [place] [id number] Care Team Providers Care Biomedical Photographer Name Role Phone No Ref-Primary, Physician Primary Care Provider Allergies Active Allergy Reactions Criticality Noted Date Comments Amoxicillin 03/18/2012 Penicillins 03/18/2012 Medications Vit-Fe Fumarate-FA ( VITAMIN PO) Active acetaminophen (TYLENOL) 325 MG tabletIndicatio ns:Type I or II open fracture of distal pole of patella, unspecified laterality, initial encounter,Knee laceration, left, initial encounter Take 3 tablets (975 mg) by mouth every 8 hours 30 tablet 3 Active aspirin 81 MG EC tabletIndicatio ns:VTE Prophylaxis Take 1 tablet (81 mg) by mouth 2 times daily 60 tablet 3 Active HYDROmorphone (DILAUDID) 2 MG tabletIndicatio ns:Type I or II open fracture of distal pole of patella, unspecified laterality, initial encounter,Knee laceration, left, initial encounter Take 1-2 tablets (2-4 mg) by mouth every 4 hours as needed for moderate pain or severe pain 1 tab po q 4 hrs prn pain scale 3-6 2 tabs po q 4 hrs prn pain scale 7-10 25 tablet 3 Active ondansetron (ZOFRAN ODT) 4 MG ODT tabIndications: Type I or II open fracture of distal pole of patella, unspecified laterality, initial encounter,Knee laceration, left, initial encounter Take 1 tablet (4 mg) by mouth every 6 hours as needed for nausea or vomiting 8 tablet 3 Active senna-docusate (SENOKOT-S/ANDREINA COLACE) 8.6-50 MG tabletIndicatio ns:Type I or II open fracture of distal pole of patella, unspecified laterality, initial encounter,Knee laceration, left, initial encounter Take 1 tablet by mouth 2 times daily as needed for constipation 20 tablet 3 Active Active Problems Problem Noted Date Diagnosed Date Type I or II open fracture o f distal pole of patella, unspecified laterality, initial encounter 12/27/2022 care, subsequent 09/01/2015 Other normal , not first 05/06/2015 CARDIOVASCULAR SCREENING; LDL GOAL LESS THAN 160 Immunizations Immunization Administration Dates Next Due DTAP (<7y) 03/19/1994, 1,1989,1989, HIB (PRP-T) 04/30/1990,03/04/1990,1989 HPV 10/31/2006,07/07/2006,04/27/2006 HepB 02/25/2006,02/25/2005,10/28/1999 Influenza (IIV3) PF 04/05/2012 MMR (MMRII) 03/19/1994,04/30/1990 Meningococcal (Menomune ) 04/27/2006 Poliovirus, inactivated (IPV) 03/19/1994, 991,1989,1989 TD,PF [...] School Help Needed Not on file 12/27 Comments No Sex and Gender Information Value Date Recorded Sex Assigned at Not on file Legal Sex Female 4:16 AM SOLE LAYER Gender Identity Not on file Sexual Orientation Not on file Last Filed Vital Signs Vital Sign Reading Time Taken Comments Blood Pressure 120/83 12/29/2022 12:41 AM SOLE LAYER Pulse 77 12/29/2022 12:41 AM SOLE LAYER Temperature 36.7 C (98 F) 12/28/2022 8:28 PM SOLE LAYER Respiratory Rate 17 12/29/2022 12:4 1 AM SOLE LAYER Oxygen Saturation 100% 12/29/2022 12: 41 AM SOLE LAYER Inhaled Oxygen Concentration - - Weight 80.6 kg (177 lb 11.1 oz) 12/27/2022 8:31 PM SOLE LAYER Height 162.6 cm (5' 4) 12/27/2022 8:31 PM SOLE LAYER Body Mass Index 30.5 12/27/2022 8:31 PM SOLE LAYER Plan of Treatment Health Maintenance Due Date Last Done Comments ADVANCE CARE PLANNING 1989 ANNUAL REVIEW OF HM ORDERS 1989 HEPATITIS C SCREENING 2007 YEARLY PREVENTIVE VISIT 07/10/2015 07/09/2014 DIABETES SCREENING 07/09/2017 07/09/2014, 0 07/26/2013, 07/21/2009 PAP 07/09/2017 07/09/2014 PHQ-2 (once per calendar year) 2024 COVID-19 VACCINE ( season) 2024 INFLUENZA VACCINE (#1) 2024 3, 04/05/2012, 04/05/2012, Additional history exists DTAP/TDAP/TD VACCINE (9 - Td or Tdap) 12/27/2032 12/27/2022, 07/01/2017, 04/11/2007, Additional history exists ZOSTER VACCINE (1 of 2) 2039 HEPATITIS B VACCINE Completed 02/25/2006, 02/25/2006, 02/25/2005, Additional history exists MENINGITIS VACCINE Aged Out 04/27/2006, 04/27/2006 No longer eligible based on patient's age to complete this topic HPV VACCINE Completed 10/31/2006, 10/15, 07/07/2006, Additional history exists HIV SCREENING Completed 05/06/2015 PNEUMOCOCCAL VACCINE: PEDIATRICS (0 to 5 YEARS) AND AT-RISK PATIENTS (6 to 49 YEARS) Aged Out No longer eligible based on patient's age to complete this topic Procedures Procedure Name Priority Date/Time Associated Diagnosis Comments HIV ANTIGEN ANTIBODY COMBO Routine 05/06/2015 10:57 AM CDT Other normal , not first COMPREHENSIVE METABOLIC PANEL Routine 07/09/2014 10:48 AM CDT Routine general medical examination at a [facility] care facility CARDIOVASCULAR SCREENING; LDL GOAL LESS THAN 160 Family history of diabetes mellitus PAP IMAGED THIN LAYER SCREEN Routine 07/09/2014 12:00 AM CDT Routine general medical examination at a [facility] facility from Last 3 Months or Most Recently Relevant to Health Maintenance Results * HIV Antigen Antibody Combo (05/06/2015 10:57 AM CDT) Pathologist [facility] HIV Antigen Antibody Combo Nonreactive HIV-1 p24 Ag & HIV-1/HIV-2 Ab Not Detected NR [facility] Blood specimen (specimen) 05/06/2015 10:57 AM CDT 05/06/2015 11:02 AM CDT us Lexi Delaney MD LAB - BLOOD ORDERABLES F inal Result [address] [address] * Comprehensive metabolic panel (07/09/2014 10:48 AM CDT) Sodium 137 133 - 144 mmol/L [facility] Potassium 3.9 3.4 - 5.3 mmol/L [facility] Chloride 105 94 - 109 mmol/L [facility] Carbon Dioxide 24 20 - 32 mmol/L [facility] Anion Gap 8 3 - 14 mmol/L [facility] Glucose 92 70 - 99 mg/dL [facility] Urea Nitrogen 9 7 - 30 mg/dL [facility] Creatinine 0.68 0.52 - 1.04 mg/dL [facility] GFR Estimate >90 Non GFR Calc >60 mL/min/1. 7m2 [facility] GFR Estimate If Black >90 GFR Calc >60 mL/min/1. 7m2 [facility] Calcium 8.8 8.5 - 10.1 mg/dL [facility] Bilirubin Total 0.6 0.2 - 1.3 mg/dL [facility] Albumin 4.0 3.4 - 5.0 g/dL [facility] Protein Total 7.4 6.8 - 8.8 g/dL [facility] Alkaline Phosphatase 60 40 - 150 U/L [facility] ALT 24 0 - 50 U/L [facility] AST 17 0 - 45 U/L [facility] Blood specimen (specimen) 07/09/2014 10:48 AM CDT 07/09/2014 10:53 AM CDT us Kallie Gay APRN STRIP ROLLER LAB - BLOOD ORDERABL ES Final Result [facility] [address] [place] [address] * PAP imaged thin layer, screen (07/09/2014 12:00 AM CDT) PAP NIL FARRAH Yan Report Patient Name: DOMENICA GREEN MR#: [id number] Specimen #: [id number] Collected: 07/09/2014 Received: 07/10/2014 Reported: 07/11/2014 14:09 Ordering Phy(s): KALLIE GAY SPECIMEN/STAIN PROCESS: Pap imaged thin layer prep screening (Surepath, FocalPoint with guided screening) Pap-Cyto x 1 SOURCE: Cervical, endocervical Pap imaged thin layer prep screening (Surepath, FocalPoint with guided screening) SPECIMEN ADEQUACY: Satisfactory for evaluation. -Transformation zone component present. CYTOLOGIC INTERPRETATION: Negative for Intraepithelial Lesion or Malignancy Electronically signed out by: KATLYN Pollock ( ASCP) Processed and screened at [facility] CLINICAL HISTORY: LMP: 06/25/14 Previous HPV Positive: HPV as a younger person but went away, Papanicolaou Test Limitations: Cervical cytology is a screening test with limited sensitivity; regular screening is critical for cancer prevention; Pap tests are primarily effective for the diagnosis/preventi on of squamous cell carcinoma, not adenocarcinomas or other cancers. TESTING LAB LOCATION: [address] [place] [address] COLLECTION SITE: Client: [facility] Location: [place] (R) Cytologic material (specimen) 07/09/2014 07/10/2014 12:16 PM CDT Kallie Gay APRN STRIP ROLLER LAB - OPTIME CLINICA L SPECIMEN Final Result COPATH from Last 3 Months or Most Recently Relevant to Health Maintenance Advance Directives For more information, please contact: [phone] * Full Code (Latest Code Status on File) Date Activated Date Inactivated Comments 12/27/2022 5:53 PM 12/29/2022 4:03 PM All basic and advanced life-sustaining interventions are performed as appropriate Question Answer Comments Code status determined by: Discussion with patie nt/ legal decision maker Care Teams Biomedical Photographer Relationship Specialty Start Date End Date No Ref-Primary, Physician PCP - General 12/27/22
--- OUTSIDE RECORDS SUMMARY | 2024-12-23 16:05 | XMS_ITS | Data Portability ---
Author Organization [employer] [facility] Address [address] [facility] [address] [place] [address] Assessment Encounter Date Assessment Date Assessment LastModified by Organization Details LastModified Time 12/13/2020 12/13/2020 CENTER ADMISSION 12/13/2020 @ 1900 Total length of maternal stay from first admission to discharge: Domenica made it to the center with her partner Bob and his grandmother Gina. She started feeling much more pressure in the car. Birthing suite ready for her. Upon arrival, Domenica used the bathroom and then immediately got into the tub. Discussed pitocin after of the baby and she stated she would like to wait and see how her bleeding does. Confirmed desires and wishes for the . Her contractions this evening started at 1650. They were far apart and when Domenica pages OCMW at 1754, contractions had all of a sudden started coming every 2 minutes. Domenica had received consistent care throughout . Support team present and helpful. Anticipate shortly. See:HPI/ROS/PE sections in chart. See:Pre-Procedure Vitals (notes section) of chart. Waterbirth planned with tub temp checked and maintained at 95-100F as noted in flowsheet. Plan: Client advised and encouraged to eat and drink in labor; informed of risks, benefits and alternatives to use of nitrous and instructed on appropriate use. GBS prophylaxis recommended if indicated. Time utilized for assessment of patient and/or reviewing chart, test results, setting follow up plan, coordinating care= 30 minutes.. LABOR AND SUMMARY :On 12/13/2020 @ 1934. Domenica is a 30 year old at 39w4d who arrived in labor with support team having received consistent care. Progressed normally and spontaneously throughout her stay. Ultimately entered the tub shortly after arrival to . Client and fetus remained stable throughout labor. Became physiologically pushy at 193 with SROM of clear fluid. Pushed effectively in a semi reclining position in the tub. Viable baby boy, weighing 8lb4oz, delivered via (waterbirth), delivered in OA position, spontaneous restitution to ROT. of the head was at 1932. Next contraction at 1933 and when Domenica pushed, shoulders and body delivered with ease. Nuchal cord noted and reduced under water, and then brought baby brought to mother's chest. Second nuchal cord noted and this was reduced as well. Time spent underwater <10 seconds. Spontaneous cries/respirations noted. Apgars 8/9. No gross anomalies noted. Shortly after the , small amount of blood noted in water, Bob stepped out of the room due to not tolerating seeing blood very well. IM pitocin given at 1936 per patient request as she felt nervous about her blood loss. Reviewed blood loss so far was normal and that being in the tub can make it appear more. Provided reassurance. was nursing at 3 minutes post delivery with good latch. Domenica stated Bob would like to cut the cord but would not want to cut cord while she was in the tub. Domenica and baby were helped to the bed where she continued to nurse the baby. Spontaneous delivery of 3v cord, intact complete placenta via Joshi mechanism at 1944. Cord was then clamped by CNM and cut by FOB at 1945. Fundus firm upon first check in bed. Lochia WNL. Vagina and perineum inspected after cord was clamped. There appeared to be trailing membranes. Used clamp to tease these out gently while Domenica pushed. Membranes expelled without difficulty. Upon examination, perineum was found to be intact. Reviewed perineal care . Mother and baby stable throughout entire stay. Skin to skin promoted and initiated. ROM@. Fluid color: Clear fluid at 1930 Vaginal @. 1933 Length of 1st stage of labor: 3 hours 30 minutes Length of 2nd stage of labor: 4 minutes Placenta @: 1944 Length of 3rd stage of labor: 11 minutes EBL: 300mL Sex of : Male Weight of in grams: 3742g (8lbs 4oz) scores: 8/9 3 cord vessels and intact placenta Skin to skin contact promoted throughout the stay at the center initiated within one hour after the GBS prophylaxis was not indicated. latch evaluated for effectiveness and comfort. Measures taken to improve latch [ideal position of the nipple in the 's mouth, absence of pinching sensation, hand expression of colostrum, breast or nipple abnormalities noted and reported to for follow up]. Suckling maintained for 5-10 minutes on each side DISCHARGE SUMMARY : On 12/13/2020 @ 2338 Client verbalizes readiness for discharge home. Denies dizziness, shortness of breath, feels prepared to care for the at home including q 2hr attempts to help baby feed and continuous skin to skin contact for 24 hours. Exam: Fundus firm below umbilicus, bleeding controlled/moderat e rubra flow. Client ambulated independently to toilet with stand-by support. Vitals/activities documented in flow sheet. Assessment: Client stable, bleeding within normal limits, appropriate for discharge to home. Slight tachycardia upon discharge. Discussed with Domenica and she is asymptomatic. Domenica states she hasn't gotten much sleep since with her on and off again labor and that she feels fine and thinks she just needs some sleep. Also feels she is a bit dehydrated and states she will drink more water. She would like to discharge. Reviewed warning signs and symptoms and when to call. On 12/13/2020 @ 2338: Time of discharge to home Plan: Discharge by private vehicle with in carseat and family member septic pump truck driver. On 12/15/2020 in the morning: Home visit planned. [facility] and 6 week PP visit will be auto-scheduled for client. [email or web address] Not available 12/14/2020 01:00:10 12/15/2020 12/15/2020 1.5 day post vaginal of a healthy male infant named Kenyon. Domenica verbalizes feeling well and looks well. There was some discord during visit due to disagreement between Domenica and her , Bob, regarding the baby's metabolic screen. Bob grew agitated and Domenica was crying. Bob left room for remainder of visit. Domneica went up to talk to him after baby's assessment, hearing and CCHD screening were completed and returned to tell me that he was now in agreement with the metabolic screen. Domenica's BP was slightly elevated at 130/90, which she attributes to being stressed. Denies GILES, visual disturbances, epigastric pain, nausea/vomiting or increase in swelling Sleeping/fatigue? reports baby sleeping well between feeds and being helpful with baby and other kids so she can rest Food and liquid intake? no concerns Nipple or other pain? none Concerns about nursing: none Bleeding: Small to moderate without clots, no pad saturation in <1h, no odor Perineal pain: feels fine Objective: exclusively. Fundus firm Perineum intact Voiding without difficulty No BM yet, client is unconcerned. States this is normal for her. Assessment: Normal recovery Plan: 1. Client was notified of warning signs and future visit schedule: [facility] and 6 week clinic visit. 2. Informed to use the Allergist/Pediatric Pulmonologist on-call number for after hours concerns. 3. /Post Plan: Home Visit and MCA charting completed by: Shanice Burks RN IBCLC Supervising owner consulting engineer who was provided with report: Jennifer Sims [facility] [email or web address] Not available 12/15/2020 15:10:14 02/19/2021 02/19/2021 A: 30 year old female approx 9 weeks post Lactating Mother Plan: Discussed the following with client: Cannot stop urine once she starts going. If this continues, she is interested in pelvic floor PT referral at her annual well visit. Signs and symptoms of depression/mood disorders. EPDS= 0 Sexuality, return to fertility. Contraception options reviewed. Activity and exercise. Nutrition and Hydration Supplements- PNV or MVI, Vit D, Calcium. Pap due Routine gynecology and access to [facility] care. Time utilized for assessment of patient and/or reviewing chart, test results, setting follow up plan, coordinating care= 45 minutes. [email or web address] Not available 02/20/2021 01:22:01 Plan of Treatment Reminders Order Date Submit Date Provider Last Modified By Organization Details Last Modified Time Details Appointments None recorded. Lab hemoglobin (Hb), blood 2021 022 VANESA In-House Results, For Internal Use Only, Do Not Delete/merge, [id number] 17:33:17 Referral None recorded. Procedures None recorded. Surgeries None recorded. Imaging None recorded. Medication Orders Pitocin 10 unit/mL injection solution 2020 021 [email or web address] Not available 10:57:39 Patient TargetsNo targets recorded. Patient Instructions Encounter Date Encounter Id Patient Instructions Last Modified By Organization Details Last Modified Time 12/13/2020 [id number] hydrotherapy* [email or web address] Not available 1 02/16/2020 13:25:09 02/19/2021 [id number] edinburgh depression scale* [email or web address] Not available 02/19/2021 17:32:41 Reason for Referral None Reported. Results Created Date Observation Date Name Description Value Unit Range Abnormal Flag Note LastModifiedBy Organization Detail LastModifiedTime 11/21/19 21 11/23/2020 CULTU RE, GROUP B STREP WITH SUSCE PTIBI LITY culture, group B strep with susceptibili ty SEE NOTE CULTU RE, GROUP B STREP WITH SUSCE PTIBI LITY Micro Numbe r: [id number] Test Statu s: Final Speci men Sourc e: Vagin al Speci men Quali ty: Adequ ate Resul t: No group B Strep tococ cus isola segundo Note per CDC guide lines optim al recov krish is achie jw by swabb ing both the lower vagin a and rectu m (thro ugh the anal sphin cter) . Not Available [facility] [address] [facility], [place], [address], 11/23/2020 14:38:55 02/19/19 22 02/19/2021 hemog lobin (Hb), blood Hemoglobin 14.3 Not Available In-Hous e Results For Internal Use Only, Do Not Delete/merge, [id number] 02/19/2021 09:28:54 Result Notes None recorded. Problems Name Problem SNOMED Code Status Onset Date Resolution Date Notes Provider Name and Address Organization Details Recorded Time Multigra mickie [id number] Completed Plans [facility]. Husb: Bob. Stefanie Leyvaluis man, [facility] 9 23:01:50 Immuniza tion refused Completed declines immuniza tions in PG Stefanie Leyvastanleyalmaz donovan, [facility] [employer] 9 23:01:50 Obesity 494390159 Completed pre-PG BMI 32. Stefanie Gordonluis man, [facility] [employer] [facility]. 9 23:01:50 Genetic screenin g for disorder Completed NORMAL, sex female; Innatal drawn 05/17/17, no carrier screen Stefanie Mathew donovan, [facility] [employer] [facility]. 9 23:01:50 Pregnanc y with uncertai n dates [id number] Completed dating confirme d per 7.6 weeks u/s MACK Myers CNM, [facility] [employer] 2 15:00:51 Multigra mickie [id number] Completed MACK Myers CNM, [facility] [employer] [facility]. 2 15:00:51 Abnormal weight gain in pregnanc y Completed Reports usually gains 74 lbs with pregnanc y. Weight gain at 24w: 28 lbs. Rosina Cantrell [employer] for Pregnanc y book provided . MACK Myers CNM [facility] [employer] 2 15:00:51 Vaccine declined by patient [id number] 2 Completed Declines Tdap, flu, COVID-19 vaccinat ion in pregnanc y Lor Min APRN CNM null [facility] [employer] [facility]. 2 15:00:51 Multigra mickie [id number] Completed Plans [facility]. Partner: Bob. Boy! Stefanie Gordonluis man, [facility] [employer] 6 10:07:48 Pregnanc y [id number] Completed 201512/06/2015 Lor Min APRN CNM null, [facility] 2 15:00:56 Pregnanc y [id number] Completed 201702/13/2018 Lor Min MACK CNM null, [facility] 2 15:00:56 Pregnanc y [id number] Completed 202006/03/2021 Lornate Min APRN CNM null, [facility] 2 15:00:56 Problem Notes None recorded. Medical Equipment None Reported. Allergies Allergen ID Allergen Name Allergen Category Reaction Reaction Severity Criticality Documentation Date Start Date Code Code System Note Provider Name and Address Organization Details Recorded Time 2285 amoxicill in medicatio n hives severe Not available 09/19/2015 723 RxNorm Throa t swell ing and vomit ting Chyrstin Maco. RAHEEM man, [facility]. 6 12:06:57 2286 Product containin g penicilli n (product) medicatio n hives severe Not available 09/19/2015 65366 8001 SNOMED throa t swell ing and vomit ting Chyrstin Maco. POULTRY HUSBANDRY TEACHER [facility]. 6 12:07:51 Medications Name Sig Start Date Stop Date Status Note LastModified by Organization Details LastModified Time clindamycin HCl 300 mg capsule 04/12 completed Not Available Not Available Not Available Pitocin 10 unit/mL injection solution Take 10 units as needed by injection route as needed for 1 day. 02/19 completed Not Available Not Available Not Available ondansetron 4 mg disintegrat ing tablet Take 1 tablet every 8 hours by oral route. 04/16 completed Not Available Not Available Not Available Childrens Vitamin 04/12 completed Not Available Not Available Not Available + DHA active Not Available Not Available Not Available Vitals Date Recorded Body weight Provider Name an d Address Organization Details Last Updated DateTime 02/19/2021 74239.624224 g Brittney álvarez APRN CNM [address] [facility] [address], [place], [address], [facility]. 02/20/2021 01:25:11 Date Recorded Body height Body mass index (BMI) Heart rate Systolic And Diastolic Provider Name and Address Organization Details Last Updated DateTime 02/19/2021 162.56 cm 34.4 kg/m2 86 /min 120/76 mm[Hg] Fay Aragon [facility] 02/19/2021 10:56:41 Date Recorded Body height Body mass index (BMI) Heart rate Systolic And Diastolic Provider Name and Address Organization Details Last Updated DateTime 12/09/2020 162.56 cm 38 kg/m2 87 /min 117/79 mm[Hg] [facility] 12/09/2020 10:48:50 Date Recorded Body weight Provider Name an d Address Organization Details Last Updated DateTime 12/09/2020 186890.052544 g Luana Ruizjm [facility]. 12/09/2020 11:42:34 Date Recorded Body height Heart rate Systolic And Diastolic Provider Name and Address Organization Details Last Updated DateTime 12/12/2020 162.56 cm 93 /min 122/83 mm[Hg] VERONICA JALLOHVIS [facility] 12/13/2020 01:41:04 Date Recorded Body height Heart rate Body temperature Systolic And Diastolic Provider Name and Address Organization Details Last Updated DateTime 12/15/2020 162.56 cm 80 /min 98.4 [degF] 130/90 mm[Hg] Shanice Burks, KAMARI [facility]. 12/15/2020 15:17:19 Social History Question Answer Notes LastModified by Organizat ion Details LastModified Time Tobacco Smoking Status Former Smoker Sofie Hudson LPN null, [facility] [employer] [facility]. 04/12/2017 14:57:04 Are You Blind Or Do You Have Difficulty Seeing? No Information not available 04/16/2020 Is Blood Transfusion Acceptable In An Emergency? Yes Information not available 04/16/2020 Breast Feeding? Yes [email or web address] Informati on not available 04/12/2017 What Type Of Diet Are You Following? REGULAR [email or web address] Information n ot available 04/12/2017 Education 12 Information no t available 04/16/2020 Exposure To Cat Litter No Information not available 04/12/2017 How Hard Is It For You To Pay For The Very Basics Like Food, Housing, Medical Care, And Heating? [id number] Information not available 04/16/2020 Live Alone Or With Others? With Others Information not available 04/12/2017 Gender Identity Female Informati on not available 04/16/2020 Do You Have People In Your Life You Can Reach Out To For Help Yes Information not available 04/12/2017 Do You Have Any Transportation Challenges? No Information not available 04/12/2017 Do You Have Enough Food To Eat? Yes Information not available 04/12/2017 Do You Have Any Restorationist Practices That You'd Like Us To Be Aware Of? N/A Information not available 04/16/2020 Have You Consumed Alcohol Since Becoming ? No Information n ot available 04/16/2020 Have You Used Any Illegal Drugs While ? No Information not available 04/16/2020 Do You Experience Mental Or Emotional Abuse In Your Current Relationship? No Information not available 04/16/2020 Do You Currently Smoke Or Vape? No Information not available 04/16/2020 Marital Status Informatio n not available 04/12/2017 What Was The Date Of Your Most Recent Tobacco Screening? 12/11/2017 Information not available 09/06/2018 How Many Children Do You Have? 3 Information not available 04/16/2020 Seat Belts Used Routinely Yes Information not available 04/12/2017 How Many Years Have You Smoked Tobacco? 12 [email or web address] Information not available 04/12/2017 Sex: Unknown Functional Status Question Answer Note LastModified by Organization D etails LastModified Time Are you currently employed? No Information not available 04/12/2017 Have you been exposed to heavy metals? No Information not available 04/12/2017 Have you been exposed to chemicals or toxins? 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 None Information not available 04/12/2017 Mental Status None recorded. Family History Nothing Reported. Medical History Condition Response Anesthesia complications N Acid reflux (GERD) N Blood disorders N Depression N Lung Disease N Breast Problem N Bipolar N Varicose veins N Headaches/Migraines Y Incontinence/leaking urine or stool N Arthritis N Infertility N Cancer N Anemia (low hemoglobin/iron) N High cholesterol N Eating disorder N Endometriosis N bleeding problems N Pelvic infection N Polycystic Ovarian Syndrome (PCOS) N Fibromyalgia N Heart Problems N High blood pressure N Chronic pelvic pain N Anxiety N Blood transfusion N Kidney or Bladder Problems N Thyroid Problems N Acne N High blood pressure in N Asthma N Sexually transmitted infection N delivery in past N Hepatitis N Osteoporosis N Gynecological History Statement/Question Response Date of LMP 02/09/2017 Post Menopausal Bleeding N N Current Control Method N/A Are you sexually active with men, women, both, or neither? Men Frequency of Cycle (Q days) Yes Sexual Problems? N Date of Last Pap Smear LMP Unknown Desired Control Method None Hormone Replacement Therapy N N N Obstetrics History GPAL:G 4 P 4 0 0 4 Type Value Full Term 4 Living 4 Total 4 Immunizations Vaccine Type Date Status Note Provider Name and Address Organization Details Recorded Time Tdap 1 [facility] 10/01/2020 11:20:29 Influenza, split virus, quadrivalent , PF 1 cancelled patient objection Fay Aragon [facility] 11/20/2020 12:00:42 Past Encounters Encounter ID Performer Location Encounter Start Date Encounter Closed Date Diagnosis/Indication Diagnosis SNOMED-CT Code Diagnosis ICD10 Code Diagnosis IMO Codes Diagnosis Note [id number] Stefanie Mathew APRN [facility] MAIN OFFICE [address] [place] [address] 09/19/2015 11:51:11 09/23/2015 03:49:11 Routine care [id number] Z34.83 [id number] Phyllis Davis APRN [facility] MAIN OFFICE [address] [place] [address] 10/03/2015 11:54:33 10/03/2015 12:33:33 Normal [id number] Z34.90 [id number] [facility] [address] [place] [id number] 10/24/2015 12:06:19 10/24/2015 12:35:45 Normal 71208684 Z34.93 Gestation period, 33 weeks 89674416 Z3A.33 [id number] Lor Pako GIRON [facility] MAIN OFFICE [address] [place] [id number] 11/01/2015 12:51:25 11/02/2015 17:18:57 [id number] Lor Pako INFORMATION SECURITY CONSULTANT [facility] MAIN OFFICE [address] [place] [address] 11/14/2015 12:06:45 11/14/2015 12:58:42 Normal 42706806 Z34.93 Gestation period, 36 weeks 76811286 Z3A.36 [id number] Phyllis Ryan [facility] MAIN OFFICE [address] [place] [address] 11/21/2015 11:21:43 11/21/2015 13:42:47 Normal 36279264 Z34.83 [id number] Stefanie Quincy GIRON [facility] MAIN OFFICE [address] [place] [address] 11/27/2015 10:01:23 11/27/2015 10:52:14 Normal [id number] Z34.83 [id number] Lor Pako GIRON [facility] MAIN OFFICE [address] [place] [address] 12/05/2015 11:48:03 12/07/2015 17:53:24 Normal 83708427 Z34.90 Gestation period, 39 weeks 81106288 Z3A.39 [id number] [facility] [address] [place] [address] 12/06/2015 02:14:46 12/30/2015 18:17:18 Normal 798034896 O80 Z37.0 Z39.0 Single ryan e from dietz [id number] Z37.0 [id number] Stefanie Mathew [facility] Home Visit [address] [place] [id number] 12/08/2015 16:48:17 12/11/2015 17:34:05 care 101145740 Z39.1 [id number] Stefaniegarima Mathew [facility] Home Visit [address] [place] [id number] 12/21/2015 22:31:09 12/22/2015 14:06:47 Sore nipple 990412507 N64.59 problem 398963 09 O92.70 management 278 [id number] Z39.1 [id number] Lor Edouardtracey [facility] MAIN OFFICE [address] [place] [address] 12/23/2015 11:17:26 12/23/2015 11:57:29 care [id number] Z39.1 [id number] Stefaniegarima Mathew [facility] MAIN OFFICE [address] [place] [address] 01/22/2016 12:21:42 01/22/2016 13:06:39 care [id number] Z39.1 [id number] Lor Edouardtracey [facility] MAIN OFFICE [address] [place] [address] 04/12/2017 14:49:03 04/12/2017 16:04:58 Routine care 744284341 Z34.90 Z12.4 Z11.3 Body mass index 30+ - obesity 226512907 Z68.39 with uncertain dates 993018889 Z3A.00 [id number] Crissy Chalo [facility] MAIN OFFICE [address] [place] [address] 05/17/2017 11:38:32 05/18/2017 22:17:46 Normal 14450833 Z34.81 Genetic sc reening for disorder 515549530 Z13.79 Z34.90 Gestation period, 13 weeks 14549529 Z3A.13 [id number] Crissy Isabel MACK [facility] MAIN OFFICE [address] [place] [id number] 06/13/2017 12:22:13 06/13/2017 18:15:21 Normal 84515760 Z34.82 Gestation period, 14 weeks 58479946 Z3A.14 [id number] Stefanie Mathew MACK [facility] MAIN OFFICE [address] [place] [address] 07/21/2017 10:06:09 07/21/2017 16:20:30 Normal [id number] Z34.82 [id number] [facility] MAIN OFFICE [address] [place] [id number] 08/29/2017 16:14:49 08/29/2017 17:16:16 [id number] Z34.93 Z23 Z67.91 Gestation period, 25 weeks 50518339 Z3A.25 Normal 0073258 2 Z34.82 [id number] [facility] PATEL MAIN OFFICE [address] [place] [id number] 09/08/2017 11:16:43 09/08/2017 12:10:21 Normal [id number] Z34.82 [id number] [facility] MAIN OFFICE [address] [place] [id number] 09/29/2017 11:49:23 09/29/2017 12:41:19 [id number] Z34.93 Z23 Z67.91 [id number] Crissy Lujanerwin GIRON [facility] MAIN OFFICE [address] [place] [id number] 10/21/2017 10:49:57 10/21/2017 11:43:52 [id number] Z34.93 Z23 Z67.91 Gestation period, 32 weeks 2967241 Z3A.32 [id number] [facility] MAIN OFFICE [address] [place] [id number] 11/14/2017 11:25:51 11/14/2017 12:27:51 Routine care 354699087 Z34.93 Gestation period, 36 weeks 90758148 Z3A.36 [id number] MACK Garay MAIN OFFICE [address] [place] [id number] 12/02/2017 10:43:48 12/02/2017 11:58:31 Normal [id number] Z34.83 Z3A.38 [id number] Stefanie Heluis [facility] [facility] [address] [place] [address] 12/11/2017 13:49:33 12/26/2017 18:06:58 Normal [id number] O80 Z34.00 Z34.80 Z37.0 [id number] Crissy Chalo [facility] [address] [place] [address] 12/13/2017 16:29:39 12/13/2017 18:06:22 care [id number] Z39.1 O90.6 Z86.32 [id number] Lor Pako [facility] [address] [place] [address] 01/31/2018 13:00:21 01/31/2018 16:46:51 care [id number] Z39.1 O90.6 Z86.32 [id number] Stefanie Leyvaluis [facility] [address] [place] [address] 04/16/2020 10:43:15 04/17/2020 08:53:22 Routine care [id number] Z34.83 Z3A.01 Z36.87 Z11.3 58062 NIRU ROBLES APRN [facility] [address] [place] [address] 06/26/2020 13:54:44 06/27/2020 08:29:49 Routine care [id number] Z34.92 Z3A.15 [id number] Brittney Shirley APRN [facility] MA[facility] [address] [place], [place] [address] 07/31/2020 10:09:26 08/01/2020 07:43:31 Routine care [id number] Z34.92 Z3A.20 [id number] Veronica Ayan [facility] [address] [place] [address] 09/01/2020 11:08:54 09/05/2020 12:06:18 Routine care [id number] Z34.82 Z3A.24 [id number] MACK Garay MAIN OFFICE [address] [place] [address] 10/01/2020 10:54:28 10/02/2020 09:44:50 Routine care [id number] Z34.83 Z3A.29 [id number] Brittney Shirley APRN [facility] MA[facility] OFF[facility] [address] [place] [address] 11/04/2020 10:50:33 11/05/2020 16:38:26 Routine care [id number] Z34.83 Z3A.34 [id number] Veronica Porras APRN [facility] [address] [place] [address] 11/20/2020 11:00:44 12/15/2020 10:27:11 Routine care [id number] Z34.83 Z3A.36 Z36.85 Administra tion of influenza vaccine 85132865 Z23 Z33.1 [id number] Luana Vilma [facility] [address] [place] [address] 12/09/2020 10:45:05 12/15/2020 09:53:51 Routine care [id number] Z34.83 Z3A.37 [id number] Veronica Porras APRN [facility] [address] [place] [address] 12/13/2020 00:24:55 12/15/2020 09:48:07 Routine care [id number] Z34.83 Z3A.39 [id number] Brittney Shirley APRN, CNM [facility] [address] [place] [address] 12/13/2020 21:32:56 12/22/2020 19:48:35 Normal delivery procedure [id number] O80 Z37.0 O09.513 O09.523 Z34.03 Z34.83 Z29.13 Z3A.39 Add weeks gestation using + sign below at add ICD-10 code hyperlink Pain in pelvis [id number] R10.2 [id number] Jennifer Sims APRN CNM Home Visit [address] [place] [address] 12/15/2020 14:51:05 01/08/2021 11:54:57 care [id number] Z39.1 [id number] Brittney [facility] OFF[facility] [address] [place] [address] 02/19/2021 10:51:27 02/20/2021 18:18:28 care [id number] Z39.2 Normal PP course.Loc hia has stopped. Denies any chest pain, shortness of breath, or calf pain. Perineal healing addressed; resuming intercours e approved. Encouraged lubricatio n while nursing and vibrations to break-up scar tissue if any discomfort .Signs and symptoms of depression reviewed.B reastfeedi ng with good supply and denies any breast/nip ple concerns. Baby is gaining weight.Sex uality, return to fertility discussed. Activity and exercise: may ease into normal activity as desired/to lerated with focus on upper body and core strengthen ing exercises. Routine gynecology and access to CNM care. Discussed annual exams following PP care.RTC 2-3 mo. for annual with pap. Health Concerns Section Related Observation LastModified by Organization Detai ls LastModified Time None Recorded Concern Status LastModified by Organization Details LastModified Time None Recorded Advance Directives Directive None Recorded Payers Insurance Date Sequence Insurance Name Policy Number Policy Reyes Covered Member ID Reyes Member ID Guarantor Name 04/15/2020 1 [place] [facility] (MEDICAID HMO) [id number] Domenica Green [id number] Domenica Green 07/06/2021 1 [facility] ([facility] [facility]PLAC[facility] - HMO) [id number] Domenica Green [id number] Domenica Green Notes Date Note Type Note Provider Name and Address Organization Details Recorded Time 1 text/html ROS as noted in the HPI Domenica is here today accompanied by two of her children (Daniella and Castillo). She is feeling well overall though she endorses some normal discomforts in including low back pain (was previously advised to try day care assistant but this doesn't work for her schedule/life). Encouraged heat, massage, and balance of activity/rest. Ready for baby. [place] lives [place] 55 minutes from the center and we discussed letting us know as early as possible if labor is suspected and to come into . She has extra towels/blankets in her car and we briefly talked about what to do if baby is born on the way to [place]. GBS-. No other concerns or questions today. RTC weekly. Time utilized for assessment of patient and/or reviewing chart, test results, setting follow up plan, coordinating care= 25 minutes. Luana man, [facility]. 12/09/2020 11:44:47 1 text/html ROS as noted in the HPI Domenica presents with partner Bob for evaluation due to prodromal labor. Both deny recent exposure and s/sx of COVID-19. Of note Domenica is experiencing nasal congestion but notes seasonal allergies and dust exposure today due to ripping out carpet in home. See OB flowsheet for triage phone calls of 12/12/2020 preceding this visit. Reports having episodes of contractions since 12/11 that get as close as 4 min apart (for 40 min total) but are more commonly 8-10 min apart lasting ~60s, mild-moderate. Lives 55 [place] from center and has a history of efficient labors once contractions are regular. Finds this pattern unusual for her and frustrating. Denies leaking of fluid, endorses active movement and bloody show in last 24 hours. SVE: /-1, soft, mid, vertex. Ctx per observation approximately Q7-10 min, mild per palpation. Discussed this type of labor can be more common with increasing parity and provided reassurance. Reviewed options including going home, remaining closer to center for the night (hotel or family member's house), staying at [place] for a couple of hours and bouncing on ball to see if labor progresses as she notes ctx are more intense with sitting upright. Recommended hydration, bath, and rest as optimal. Domenica elects to go home at this time and await regular contractions. Encouraged to page OCMW back promptly also with SROM, urge to bear down, questions, or concerns. Answered numerous questions from partner about labor patterns, emergency childbirth at home if labor were to progress quickly (advised calling 911 and paging OCMW), and potential timelines. Time utilized for assessment of patient and/or reviewing chart, test results, setting follow up plan, coordinating care= 25 minutes. RTC next week for routine PNV, sooner as needed. VERONICA man, [facility] [employer]. 12/13/2020 01:54:42 1 text/html Labor HPIReported by PatientContractions, membranes, coping, fetusFor onset/timing, patient reportstime contx began (1600)andcontx rhythm q (2) min. For other symptoms, patient reportsfetal movement,no rom,no fever,no nausea,no vomiting,no edema,no headache,no dizziness,no visual changes, andvaginal discharge. For coping measures, patient reportsmassage/touch,move ment/position changes, andsupportive team. Brittney Shirley APRN [facility] [address], [place], [address], [facility] 12/14/2020 22:01:10 1 text/html VisitReported by PatientHPIFor onset/timing, patient reportsdate of delivery:(12/13/2020). For quality, patient reportsnsvd. For context, patient reportscomplications of : none,complications of labor: none, complications: none,feeding choice: breast, andgood support from partner/family(reports sister and 's grandmother will be helping as well). For associated symptoms, patient reportsno abnormal bleeding,no pelvic pain,laceration well healed,no fecal incontinence,no dysuria,no urinary incontinence,no fever,no problems, andno mastitis. Jennifer Sims APRN CNM null, [employer]. 12/15/2020 16:15:25 2 text/html ROS as noted in the HPI S: Domenica is 30 yo female who is 9 weeks post vaginal of a healthy male infant named Kenyon.Gestational age at : 39.4Date of : 12/13/2020ir site: [place] BCComplications of labor/: Precipitous labor/birthPertinent complications/history: Abnormal weight gain. 74 lbs.Feeding: exclusive breast. Concerns about nursing: none. Baby gaining wt well.Bleeding: lochia ceased at 4 weeks. No return of menses.Perineal pain: healed well, no pain or discomfort.Voiding: without pain or difficulty but does have difficulty to make herself stop urinating while midstream.Bowel movements: without pain or difficultyEmotional status/Bonding: Bonding well. Stable in mood. Family and kids adjusting well. Feels safe in her relationship and at home. Discussed her home visit. She felt embarrassed by her 's actions but does feel safe. States he has become somewhat overly cautious with the pandemic, and feels overprotective of their children. support/plan: Has good support.Pap smear: Hx of abnormal pap at 15. Normal since but is due for one. Will schedule annual well woman visit and get pap done at that time.Family planning/contraception: Condoms Brittney Shirley APRN CNM [address] [facility] [address], [place], [address], [employer]. 02/20/2021 01:25:53 OBGyn Episode Ob Episode Information Episode Created Date Number of Fetuses Patient Bloodtype Patient rh Status Prepregnancy Weight lbs Domestic Partner Domestic Partner Phone Father Name Corrugator Supervisor Status 09/19/19 16 1 CLOSED Fetus Data First Name Last Name Admitted to NICU Weight (g) Sex Living Outcome Pediatric Complications Fetus ID Race Codes Race Delivery Type 3798.83 3 F Full Term [address] Scott Calculation Initial Scott Date Initial Exam Date Initial Exam Provider Initial Ultrasound Date Last Menstrual Period Date Ultra Sound Weeks Gestation 0 Eighteen To Twenty Week Scott Update Ultra Sound Date Fundal Height At Umbil Quickening Date Ultra Sound Latest Weeks Gestation Final Scott Confirmed By Final Scott Confirmed Date Final Scott Date Ultra Sound Latest Days Gestation 0 0 Menstrual History Last Menstrual Date Menses Monthly On Bcp Conception Prior Menses Frequency Hcg Plus Date Menarche Onset Age Delivery Information Delivery Date Delivery Type Labor Anesthesia Weeks Gestation Incision Type Labor Labor Length Hrs Delivered By Post Complications Tubal Sterilization Discharge Date Comments 3 None 39.6 false 7 Delivere d at [facility] Discharge Information Feeding Method Contraceptive Method Maternal HG B and HCT Levels Ob Episode Information Episode Created Date Number of Fetuses Patient Bloodtype Patient rh Status Prepregnancy Weight lbs Domestic Partner Domestic Partner Phone Father Name Corrugator Supervisor Status 09/22/19 16 1 O Positive 148 Bob Mouseprashant Alljose Eagen CLOSED Fetus Data First Name Last Name Admitted to NICU Weight (g) Sex Living Outcome Pediatric Complications Fetus ID Race Codes Race Delivery Type Castillo false 3543.68 75 M Full Term 4683 declin ed Patie nt Decli nandini [place] Problems Problem Notes Problem Name Start Date End Date Resolution Snomed Code Not e Multigravida [id number] Plans [facility]. Partner: Bob. Boy! Scott Calculation Initial Scott Date Initial Exam Date Initial Exam Provider Initial Ultrasound Date Last Menstrual Period Date Ultra Sound Weeks Gestation 12/12/2015 09/22/2015 [email or web address] 05/08/2015 8 Eighteen To Twenty Week Scott Update Ultra Sound Date Fundal Height At Umbil Quickening Date Ultra Sound Latest Weeks Gestation Final Scott Confirmed By Final Scott Confirmed Date Final Scott Date Ultra Sound Latest Days Gestation 0 [email or web address] 12/05/2015 016 0 Pre-ruben Flowsheet Flowsheet Date 09/19/2015 Pappas Score Blood Edema Fundus Height Fundus Units Glucose Ketones Leukocytes Nitrite Labor Signs Protein Cervic Dilation Cervic Effacement Cervic Station 28 cm none Type Weight in lbs Pre/Post Dialysis Refused 190.642136777904 BP Diastolic BP Location Tested BP Systolic BP Type 73 113 sitting Fetus Heart Rate Present A 140 Present Fetus Movement A Yes Comments Transfer exam. Revi ewed records. Oriented to [place] care. Testing today. Prior was at center and was normal. Early concern for heart resolved after follow up showed normal echo. Flowsheet Date 10/03/2015 Pappas Score Blood Edema Fundus Height Fundus Units Glucose Ketones Leukocytes Nitrite Labor Signs Protein Cervic Dilation Cervic Effacement Cervic Station 32 cm none Type Weight in lbs Pre/Post Dialysis Refused 192.395258864543 BP Diastolic BP Location Tested BP Systolic BP Type 72 120 sitting Fetus Heart Rate Present A 140 Present Fetus Movement A Yes Comments Reviewed normal 3rd trimeste r labs. Domenica is feeling well. Planning BC care. Will attend class next month. RTC 3 weeks. Flowsheet Date 10/24/2015 Pappas Score Blood Edema Fundus Height Fundus Units Glucose Ketones Leukocytes Nitrite Labor Signs Protein Cervic Dilation Cervic Effacement Cervic Station 33 cm none Type Weight in lbs Pre/Post Dialysis Refused 199.826322641045 BP Diastolic BP Location Tested BP Systolic BP Type 70 122 sitting Fetus Heart Rate Present A 140s Present Fetus Movement A Yes Comments +FM. Reviewed FM monitoring, when to call. Feels well overall, some physical discomfort in her hips and SP bone. Has not been seeing chiro, but recommended starting to see one. Provider: Aleida Garibay. Has child guidance counselor for Danette when she is in labor. Discussion re: care & support/building her village. Has family in town. Plans on . Taking BC prep class next weekend. RTC in 3 week with GBS screening at that time. Flowsheet Date 11/01/2015 Pappas Score Blood Edema Fundus Height Fundus Units Glucose Ketones Leukocytes Nitrite Labor Signs Protein Cervic Dilation Cervic Effacement Cervic Station Type Weight in lbs Pre/Post Dialysis Refused BP Diastolic BP Location Tested BP Systolic BP Type Fetus Heart Rate Present Fetus Movement Comments Attended prep clas s. Flowsheet Date 11/14/2015 Pappas Score Blood Edema Fundus Height Fundus Units Glucose Ketones Leukocytes Nitrite Labor Signs Protein Cervic Dilation Cervic Effacement Cervic Station 36 cm none Type Weight in lbs Pre/Post Dialysis Refused 206.779955622327 BP Diastolic BP Location Tested BP Systolic BP Type 76 114 sitting Fetus Heart Rate Present A 135 Present Fetus Movement A Yes Comments +FM. Feeling well. No BH ctx s. Hips sore especially at night with sleeping. Recommended day care assistant. GBS discussed and collected today (handout given). PCN allergy, will run sensitivities. Reviewed s/sx of labor, when to call in labor. RTC weekly. Flowsheet Date 11/21/2015 Pappas Score Blood Edema Fundus Height Fundus Units Glucose Ketones Leukocytes Nitrite Labor Signs Protein Cervic Dilation Cervic Effacement Cervic Station 39 cm Papo Padilla Type Weight in lbs Pre/Post Dialysis Refused 203.73524299960 BP Diastolic BP Location Tested BP Systolic BP Type 84 116 sitting Fetus Heart Rate Present A 130s Present Fetus Movement A Yes Comments Domenica is feeling well an d is getting ready to welcome baby. Consistent movment. Reviewed negative GBS. Recommended flu vaccine. Client declines. Discussed meds. Planning Vitamin K, declines erythromycin and Hepatitis B vaccine. RTC weekly until . Flowsheet Date 11/27/2015 Pappas Score Blood Edema Fundus Height Fundus Units Glucose Ketones Leukocytes Nitrite Labor Signs Protein Cervic Dilation Cervic Effacement Cervic Station 37 cm none Type Weight in lbs Pre/Post Dialysis Refused 209.282679916218 BP Diastolic BP Location Tested BP Systolic BP Type 76 126 sitting Fetus Heart Rate Present A 140 Present Fetus Movement A Yes Comments Feels tired and not sleeping well but not surprised and feeling that this is normal. S/P pain-relief discussed (hands and knees positioning and belt). Epsom salt foot baths advised for help with sleep. Many contx. Ready! Flowsheet Date 12/05/2015 Pappas Score Blood Edema Fundus Height Fundus Units Glucose Ketones Leukocytes Nitrite Labor Signs Protein Cervic Dilation Cervic Effacement Cervic Station 39 cm Papo Padilla Type Weight in lbs Pre/Post Dialysis Refused 209.337171257822 BP Diastolic BP Location Tested BP Systolic BP Type 78 112 sitting Fetus Heart Rate Present Fetus Movement A Yes Comments +FM. Feels very ready to h ave baby. Lots of BH ctxs with some very uncomfortable especially at night. Thought she was entering labor a few nights ago, but drank water and laid down and ctxs faded away. Reviewed importance of hydration, nutrition, rest. No VB, gush/LOF. S/P bone discomfort continues- discussed relief. Believes she will want hydrotherapy but not WB at this time. Planning BC. GBS negative. RTC in 1 week. Reviewed owner consulting engineer #. Flowsheet Date 12/05/2015 Pappas Score Blood Edema Fundus Height Fundus Units Glucose Ketones Leukocytes Nitrite Labor Signs Protein Cervic Dilation Cervic Effacement Cervic Station Type Weight in lbs Pre/Post Dialysis Refused BP Diastolic BP Location Tested BP Systolic BP Type Fetus Heart Rate Present Fetus Movement Comments Domenica paged CNM bowling or skating front desk clerk to report she thinks she lost her mucus plug, a slimy brownish discharge. Having irregular contractions every 10-15 minutes which are uncomfortable, but not very intense. She was able to talk through a contraction on the phone. Normal movement. No fluid leaking or bleeding. Reviewed early labor, nutrition, hydration, rest, as well as signs of active labor and warning signs. Domenica agrees to call CNM with warning signs or signs of active labor. Flowsheet Date 12/06/2015 Pappas Score Blood Edema Fundus Height Fundus Units Glucose Ketones Leukocytes Nitrite Labor Signs Protein Cervic Dilation Cervic Effacement Cervic Station Type Weight in lbs Pre/Post Dialysis Refused BP Diastolic BP Location Tested BP Systolic BP Type Fetus Heart Rate Present Fetus Movement Comments Labor and delivery Menstrual History Last Menstrual Date Menses Monthly On Bcp Conception Prior Menses Frequency Hcg Plus Date Menarche Onset Age Genetic Screening And Infection History Question Response Note Age Will Be 35 Years Or Older At Estimated Due D ate false Thalassemia; MCV < 80 false Neural Tube Defect (Meningomyelocele, Spina Bifi da, Or Anencephaly) false Family history of Congenital Heart Defect false Family history of Down Syndrome false Zack-Sachs false Sickle Cell Disease Or Trait false Hemophilia Or Other Bleeding Disorders false Family history of Muscular Dystrophy false Family history or Carrier of Cystic Fibrosis fal se Fahad's Chorea false Family history of Intellectual disability/Autism false Inherited Genetic Or Chromosome Disease false Metabolic Disorder (eg, Type 1 Diabetes, PKU) fa lse Either parent with defect not already stat ed false Recurrent loss or history of stillbirt h (>20 weeks) false Medications (including Supplements, Vitamins, He rbs, OTC Drugs) false Tuberculosis (TB) exposure false Genital Herpesvirus false Rash Or Viral Illness while false History of STI or recent PID false Other Infection History false Plans and Education First Trimester Discussed Date Discussion Item Discussion Note Discuss ed By 11/27/2015 Activity-work,fitness,sex,posture [email or web address] 11/27/2015 Meets criteria for BC care c [email or web address] 11/27/2015 Prepreg BMI/Recommended Wt Gain 25# advis ed che2 11/27/2015 Safety (medications, supplements, seat belts, teratogens, etc) [email or web address] 11/27/2015 Nutrition Counseling and Safety [email or web address] 11/27/2015 [facility] 11/[facility]/2015 [facility] 11/27/2015 Genetic Screening [facility] 11/27/2015 BMI<18.5=28-40#/BMI 18.5-24.9=25-35#/BMI 25.0-29.9=15-25#/BMI>30=11- 20# [email or web address] 11/27/2015 Anticipated course of care [facility] 11/27/2015 EPDS [facility] 11/27/2015 Orientation to [facility] w: philosophy, model of care, how to reach us che2 Second Trimester Discussed Date Discussion Item Discussion Note Discuss ed By 11/27/2015 Initial Labs Reviewed/D[facility]ed [facility] 11/27/2015 Anatomy Scan Ordered/Reviewed [facility] 10/03/2015 24-28wk labs: GCT, Hgb, mariya screen [facility] 11/27/2015 Genetic screening re andrew received/reviewed [facility] 11/27/2015 Intimate partner violence reports she is safe cheit2 11/27/2015 Rhogam PRN NA [facility] 11/27/2015 Meets criteria for BC care c [email or web address] Third Trimester Discussed Date Discussion Item Discussion Note Discuss ed By 09/22/2015 Sibling preparation advised/resources provided [facility] 10/24/2015 [place] Care Provider Aleida zamudio 12/06/2015 Postdates management reviewed NA 2 09/22/2015 Meets criteria for BC care c [email or web address] 11/14/2015 GBS Collected/Result s Discussed neg kristy 09/22/2015 EPDS/PP Support team /PPD awareness [facility] 11/27/2015 Total weight gain pr ior to = 60 cheit2 09/22/2015 Discussion regarding plan [place] [id number] 09/22/2015 Waterbirth Education [place] [id number] 09/22/2015 PTL/FMC [place] [address] 09/22/2015 [facility] 09/22[facility]2015 education (n ewborn screening, jaundice, SIDS/safe sleeping position, car seat) Planning vitamin K. Declines erythromycin and Hep B vaccine. [place] [phone] 09/22/2015 Tdap offered [place] [address] 11/27/2015 Consent forms comple segundo PEREZ (BC, Waterbirth, ) [place] [address] 09/22/2015 Benefits of warp knit operator/referrals [place] [address] 09/22/2015 Exercise/Stretching Prep for [place] [address] 09/22/2015 Problem List Updated [place] [id number] 09/22/2015 S/sx of labor, when to call, owner consulting engineer bowling or skating front desk clerk #. [facility] 11/27/2015 Pre-registered at hospital c [place] [phone] 12/06/2015 into [employer] [place] [address] 11/21/2015 Weight gain at begin anuj of third trimester 42 POUNDS [email or web address] Delivery Information Delivery Date Delivery Type Labor Anesthesia Weeks Gestation Incision Type Labor Labor Length Hrs Delivered By Post Complications Tubal Sterilization Discharge Date Comments 6 Sponta neous None 39.1 false 4 CAH None 12/06/2015 Discharge Information Feeding Method Contraceptive Method Maternal HG B and HCT Levels Breast Ob Episode Information Episode Created Date Number of Fetuses Patient Bloodtype Patient rh Status Prepregnancy Weight lbs Domestic Partner Domestic Partner Phone Father Name Corrugator Supervisor Status 04/12/19 18 1 O Positive 187 Bob Donovan CLOSED Fetus Data First Name Last Name Admitted to NICU Weight (g) Sex Living Outcome Pediatric Complications Fetus ID Race Codes Race Delivery Type 4252.42 5 M true Full Term [address] Problems Problem Notes Problem Name Start Date End Date Resolution Snomed Code Not e Multigravida [id number] Plans W illow . Husb: Bob. Immunization refused [id number] declines immunizations in [place] Obesity [id number] pre-PG BMI 32. Genetic screening for disorder [id number] NORMAL, sex fem jorge; Innatal drawn 05/17/17, no carrier screen Scott Calculation Initial Scott Date Initial Exam Date Initial Exam Provider Initial Ultrasound Date Last Menstrual Period Date Ultra Sound Weeks Gestation 12/10/2017 04/12/2017 04/20/2017 02/09/2017 6 Eighteen To Twenty Week Scott Update Ultra Sound Date Fundal Height At Umbil Quickening Date Ultra Sound Latest Weeks Gestation Final Scott Confirmed By Final Scott Confirmed Date Final Scott Date Ultra Sound Latest Days Gestation 07/22/19 18 20 12/11/19 18 0 Pre-ruben Flowsheet Flowsheet Date 04/12/2017 Pappas Score Blood Edema Fundus Height Fundus Units Glucose Ketones Leukocytes Nitrite Labor Signs Protein Cervic Dilation Cervic Effacement Cervic Station Type Weight in lbs Pre/Post Dialysis Refused BP Diastolic BP Location Tested BP Systolic BP Type Fetus Heart Rate Present Fetus Movement Comments 27 year old who is h ere for her initial visit with [facility]. Here with her two children. No prior care was received during this . Current OB history includes: Irregular cycles, still her son. Not having monthly cycles. Desires/open to dating ultrasound. Believes LMP was approx 8 weeks ago. Nauseated. No vomiting. Some fatigue. Desires genetic screening- Progenity Innatal with sex chromosomes declines carrier screening. Oriented to [facility]. Desires BC , appropriate candidate. NOB labs today. Dating US ordered to [facility]. RTC 10-12 weeks for FHTs and genetic screening. Flowsheet Date 05/17/2017 Pappas Score Blood Edema Fundus Height Fundus Units Glucose Ketones Leukocytes Nitrite Labor Signs Protein Cervic Dilation Cervic Effacement Cervic Station 10 wks none Type Weight in lbs Pre/Post Dialysis Refused Weight 194.774715857064 BP Diastolic BP Location Tested BP Systolic BP Type 82 121 sitting Fetus Heart Rate Present A 170s Present Fetus Movement A Yes Comments Domenica is here for her OB V. Reviewed initial visit and screening labs. Discussed early U/S at 6 weeks, large date discrepancy with LMP and will use US for dating. Assessed nausea, eating, activity and plan for . Progenity Innatal only test today. RTC 4 weeks or PRN Enriqueta Dallas SM/ Crissy Funes CNM Flowsheet Date 06/13/2017 Pappas Score Blood Edema Fundus Height Fundus Units Glucose Ketones Leukocytes Nitrite Labor Signs Protein Cervic Dilation Cervic Effacement Cervic Station 14 wks none Type Weight in lbs Pre/Post Dialysis Refused Weight 195.265756292993 BP Diastolic BP Location Tested BP Systolic BP Type 75 119 sitting Fetus Heart Rate Present A 160s Present Fetus Movement Comments Pt here for routine OBV. Den ies VB, LOF or reg cntxns. Notes possible FM. Reports feeling better since last appt, less nausea. No concerns today. Received normal genetic screening results. It's a girl! Warning signs reviewed. Plans to do 20 wk sono and visit together in 6 weeks or OBV sooner as needed. JM Flowsheet Date 07/21/2017 Pappas Score Blood Edema Fundus Height Fundus Units Glucose Ketones Leukocytes Nitrite Labor Signs Protein Cervic Dilation Cervic Effacement Cervic Station 20 cm none Type Weight in lbs Pre/Post Dialysis Refused Weight 197.115600410503 BP Diastolic BP Location Tested BP Systolic BP Type 83 135 sitting Fetus Heart Rate Present A 140 Present Fetus Movement A Yes Comments Feeling well. Reviewed ultra sound results and recommended follow up. Quickening discussed. Glucose testing recommended at next visit. 30 minute visit, 5 for exam. 6 Flowsheet Date 08/29/2017 Pappas Score Blood Edema Fundus Height Fundus Units Glucose Ketones Leukocytes Nitrite Labor Signs Protein Cervic Dilation Cervic Effacement Cervic Station 25 cm none Type Weight in lbs Pre/Post Dialysis Refused Weight 204.925115029363 BP Diastolic BP Location Tested BP Systolic BP Type 70 120 sitting Fetus Heart Rate Present A 124 Fetus Movement A Yes Comments Pt here for LENNIE with son and daughter in good spirits. Excited that daughter started bible school and will have 1st soccer game this evening. Unable to stay for 1hr GCT due to soccer game but able to RTC on 09/08 (lab only visit) w/o kids, will have a sitter. Undecided about BC, wants one more child but she doesn't at this time. Affirms +FM. Denies LOF, VB, abn discharge, and regular painful contractions. FAS result reviewed. No questions and concerns. RTC in 4 wks or sooner if needed. Offer Tdap at next visit. S/S of PTL and when to call discussed. 30 min visit, 5 min exam. Alison Garcia., INFORMATION SECURITY CONSULTANT, CNM Flowsheet Date 09/08/2017 Pappas Score Blood Edema Fundus Height Fundus Units Glucose Ketones Leukocytes Nitrite Labor Signs Protein Cervic Dilation Cervic Effacement Cervic Station Type Weight in lbs Pre/Post Dialysis Refused BP Diastolic BP Location Tested BP Systolic BP Type Fetus Heart Rate Present Fetus Movement Comments Here for glucose screening Flowsheet Date 09/29/2017 Pappas Score Blood Edema Fundus Height Fundus Units Glucose Ketones Leukocytes Nitrite Labor Signs Protein Cervic Dilation Cervic Effacement Cervic Station 29 cm none Type Weight in lbs Pre/Post Dialysis Refused Weight 208.799522994553 BP Diastolic BP Location Tested BP Systolic BP Type 73 122 sitting Fetus Heart Rate Present A 140 Present Fetus Movement A Yes Comments 29 wk PNV. Feeling good. Has occasional heart racing when she goes up steps. It resolves when she rests. We discussed pushing fluids and the value of stay active. Weight gain goal for 10 lbs the remainder of the . We discussed her Hgl and 1 hr gtt results. Return in 2 weeks. 30 min visit. Flowsheet Date 10/21/2017 Pappas Score Blood Edema Fundus Height Fundus Units Glucose Ketones Leukocytes Nitrite Labor Signs Protein Cervic Dilation Cervic Effacement Cervic Station 33 cm Rice Padilla Type Weight in lbs Pre/Post Dialysis Refused Weight 214.194856354098 BP Diastolic BP Location Tested BP Systolic BP Type 68 124 sitting Fetus Heart Rate Present A 140s Present Fetus Movement A Yes Comments Pt here for routine OBV. Den ies VB, LOF or reg cntxns. Increased BH w/ activity, has been working more on new house; encouraged rest. Advised to wear mask while painting. Notes normal FM. Concerned about wt gain. No changes in diet, admits high salt, no severe swelling. Discussed recommended weight gain/diet/activity. Will monitor. RTC 2-3 wks or prn. KARIME Flowsheet Date 11/14/2017 Pappas Score Blood Edema Fundus Height Fundus Units Glucose Ketones Leukocytes Nitrite Labor Signs Protein Cervic Dilation Cervic Effacement Cervic Station 35 cm none Type Weight in lbs Pre/Post Dialysis Refused Weight 219.516825116065 BP Diastolic BP Location Tested BP Systolic BP Type 68 117 sitting Fetus Heart Rate Present A 152 Present Fetus Movement A Yes Comments Pt here for LENNIE with her chi ldren good spirits. Affirms +FM. Denies LOF, VB, abn discharge, and regular painful contractions. No questions or concerns. Report small spell of diarrhea. GBS collected today. RTC in 1-2wks or sooner if needed. S/S of labor and when to call discussed. 30 min visit, 5 min exam. Alison Garcia., INFORMATION SECURITY CONSULTANT, CNM Flowsheet Date 12/02/2017 Pappas Score Blood Edema Fundus Height Fundus Units Glucose Ketones Leukocytes Nitrite Labor Signs Protein Cervic Dilation Cervic Effacement Cervic Station 38 cm Cramping Type Weight in lbs Pre/Post Dialysis Refused BP Diastolic BP Location Tested BP Systolic BP Type 80 129 sitting Fetus Heart Rate Present A 120's Present Fetus Movement A Yes Comments Domenica is here alone. She has been feeling some cramping and vaginal shocks but no regular ctx. No changes in urinary pattern or vaginal discharge. FMC reviewed and +FM endorsed. Night time nausea and vomiting. Encouraged to use Tums or papaya enzymes. Reviewed when to call and how to reach owner consulting engineer. She has not pre registered at hospitals and encouraged to do so. SVE requested and /-2 soft, mid. Membranes swept per pt request. 30 min. visit/5 for exam. RTC 1 Flowsheet Date 12/09/2017 Pappas Score Blood Edema Fundus Height Fundus Units Glucose Ketones Leukocytes Nitrite Labor Signs Protein Cervic Dilation Cervic Effacement Cervic Station Type Weight in lbs Pre/Post Dialysis Refused BP Diastolic BP Location Tested BP Systolic BP Type Fetus Heart Rate Present Fetus Movement A Yes Comments At 2039- Domenica reporting she had 2-3 ctxs while walking for 1 hour but now sitting down eating food without ctxs. Active FM. Denies other labor s/sx- LOF/gush/VB, N/V, looser stools. Denies recent IC. Reports good water intake today and usual activity. Last labors at 39+weeeks, about 4-7 hours. Lives in [facility] approx 1 hour from [place]. Discussed coming to [place] for eval, strongly recommended hotel in the [facility] overnight in case labor picked up. Plan to stay in hotel in [place] and will update CNM as needed. Domenica had spoken to previous owner consulting engineer bowling or skating front desk clerk around 1700 stating she was having ctxs and assumed early labor. Plan to meet at 1900 at [facility]. Domenica called at 1920 reporting that since being in the car driving (40 minutes) she had not had a ctxs. Encouraged stopping in the cities for food and walking around, to check back in 1 hour. Domenica agreed to plan. Flowsheet Date 12/10/2017 Pappas Score Blood Edema Fundus Height Fundus Units Glucose Ketones Leukocytes Nitrite Labor Signs Protein Cervic Dilation Cervic Effacement Cervic Station Type Weight in lbs Pre/Post Dialysis Refused BP Diastolic BP Location Tested BP Systolic BP Type Fetus Heart Rate Present Fetus Movement Comments No word from Domenica overn ight. CNM reached out to Domenica at 0800, reports she felt come ctxs but then went to bed, slept all night with no further ctxs noted. Likely will return home and await labor. Instructed to call CNM with udpates. Flowsheet Date 12/11/2017 Pappas Score Blood Edema Fundus Height Fundus Units Glucose Ketones Leukocytes Nitrite Labor Signs Protein Cervic Dilation Cervic Effacement Cervic Station Type Weight in lbs Pre/Post Dialysis Refused BP Diastolic BP Location Tested BP Systolic BP Type 79 121 sitting Fetus Heart Rate Present Fetus Movement Comments Flowsheet Date 12/11/2017 Pappas Score Blood Edema Fundus Height Fundus Units Glucose Ketones Leukocytes Nitrite Labor Signs Protein Cervic Dilation Cervic Effacement Cervic Station Type Weight in lbs Pre/Post Dialysis Refused BP Diastolic BP Location Tested BP Systolic BP Type Fetus Heart Rate Present Fetus Movement Comments PHONE CALL 0920: Domenica jules alls reporting ctx that feel more intense and are about every 2-4 minutes. Feels some pressure during the ctx and is breathing through. She awoke around 0330 with ctx and they have been getting closer together since. Good FM. Some bloody show but denies LOF. Plans to drop off kids and then head to [facility]; to meet around 1045/1100. Pt verbalizes understanding and agrees to POC. Warning signs and when to call reviewed. Flowsheet Date 12/13/2017 Pappas Score Blood Edema Fundus Height Fundus Units Glucose Ketones Leukocytes Nitrite Labor Signs Protein Cervic Dilation Cervic Effacement Cervic Station Type Weight in lbs Pre/Post Dialysis Refused BP Diastolic BP Location Tested BP Systolic BP Type 81 117 sitting Fetus Heart Rate Present Fetus Movement Comments Flowsheet Date 01/31/2018 Pappas Score Blood Edema Fundus Height Fundus Units Glucose Ketones Leukocytes Nitrite Labor Signs Protein Cervic Dilation Cervic Effacement Cervic Station Type Weight in lbs Pre/Post Dialysis Refused Weight 195.753540792808 BP Diastolic BP Location Tested BP Systolic BP Type 78 116 sitting Fetus Heart Rate Present Fetus Movement Comments Menstrual History Last Menstrual Date Menses Monthly On Bcp Conception Prior Menses Frequency Hcg Plus Date Menarche Onset Age 1202/09/2017 Genetic Screening And Infection History Question Response Note Age Will Be 35 Years Or Older At Estimated Due D ate false Thalassemia; MCV < 80 false Neural Tube Defect (Meningomyelocele, Spina Bifi da, Or Anencephaly) false Family history of Congenital Heart Defect false Family history of Down Syndrome false Zack-Sachs false Sickle Cell Disease Or Trait false Hemophilia Or Other Bleeding Disorders false Family history of Muscular Dystrophy false Family history or Carrier of Cystic Fibrosis fal se [place]'s Chorea false Family history of Intellectual disability/Autism false Inherited Genetic Or Chromosome Disease false Metabolic Disorder (eg, Type 1 Diabetes, PKU) fa lse Either parent with defect not already stat ed false Recurrent loss or history of stillbirt h (>20 weeks) false Medications (including Supplements, Vitamins, He rbs, OTC Drugs) false Tuberculosis (TB) exposure false Genital Herpesvirus false Rash Or Viral Illness while false History of STI or recent PID false Other Infection History false Plans and Education First Trimester Discussed Date Discussion Item Discussion Note Discuss ed By 04/12/2017 Activity-work,fitnes s,sex,pos ture [facility] 04/12/2017 Meets criteria for care c [email or web address] 04/12/2017 Prepreg BMI/Recommen ded Wt Gain BMI 32 [facility] 04/12/2017 Safety (medications, supplements, seat belts, teratogens, etc) [email or web address] 04/12/2017 Nutrition Counseling and Safety [facility] 04/12/2017 Problem List Completed clued javan 04/12/2017 Genetic Screening desires Progen ity Innatal with sex chromosomes, declines carrier screen [facility] 04/12/2017 Free from intimate p artner violence [facility] 04/12/2017 Orientation to Sunny w: philosophy, model of care, how to reach [facility] Second Trimester Discussed Date Discussion Item Discussion Note Discuss ed By 06/13/2017 Initial Labs Reviewed/Discussed jackie 10/21/2017 24-28wk labs: GCT, Hgb, mariya screen 06/13/2017 Genetic screening re sults received/reviewed [email or web address] 06/13/2017 Rhogam PRN n/a 06/13/2017 Meets criteria for BC care j [email or web address] 06/13/2017 Free from intimate partner violence [email or web address] Third Trimester Discussed Date Discussion Item Discussion Note Discuss ed By 10/21/2017 Sibling preparation advised/resources provided 11/14/2017 Meets criteria for BC care d banigo 10/21/2017 has breast pump [email or web address] 10/21/2017 PTL/FMC [email or web address] 10/21/2017 Free from intimate partner violence [email or web address] 10/21/2017 Tdap offered declines [email or web address] 10/21/2017 Benefits of warp knit operator/referrals [email or web address] 12/02/2017 Peds provider entered above [email or web address] 11/14/2017 S/sx of labor, when to call, owner consulting engineer bowling or skating front desk clerk #. [email or web address] Pre-registered at hospital Will do Delivery Information Delivery Date Delivery Type Labor Anesthesia Weeks Gestation Incision Type Labor Labor Length Hrs Delivered By Post Complications Tubal Sterilization Discharge Date Comments 8 Sponta neous None 40.1 false AMJ None false 12/11/2017 pit fo r heavy bleeding, EBL WNL Discharge Information Feeding Method Contraceptive Method Maternal HG B and HCT Levels Breast Ob Episode Information Episode Created Date Number of Fetuses Patient Bloodtype Patient rh Status Prepregnancy Weight lbs Domestic Partner Domestic Partner Phone Father Name Corrugator Supervisor Status 04/17/19 21 1 O Positive 170 [facility] CLOSED Fetus Data First Name Last Name Admitted to NICU Weight (g) Sex Living Outcome Pediatric Complications Fetus ID Race Codes Race Delivery Type [facility] false 3742.13 4 M true Full Term [id number] declin ed Patie nt Decli nandini [place] h Problems Problem Notes Plans Pitocin in 3rd stage ( AMTSL). Told CNM that received permission to not wear mask during labor/ due to breathing issues. Problem Name Start Date End Date Resolution Snomed Code Not e Abnormal weight gain in [id number] Reports usually gains 74 lbs with . Weight gain at 24w: 28 lbs. Rosina Cantrell [employer] for book provided. Vaccine declined by patient [id number] Declines Tdap, flu, COVID-19 vaccination in with uncertain dates [id number] dating confi rmed per 7.6 weeks u/s Multigravida [id number] Scott Calculation Initial Scott Date Initial Exam Date Initial Exam Provider Initial Ultrasound Date Last Menstrual Period Date Ultra Sound Weeks Gestation 12/16/2020 04/16/2020 [email or web address] 05/05/2020 7 Eighteen To Twenty Week Scott Update Ultra Sound Date Fundal Height At Umbil Quickening Date Ultra Sound Latest Weeks Gestation Final Scott Confirmed By Final Scott Confirmed Date Final Scott Date Ultra Sound Latest Days Gestation 08/05/19 21 21 [email or web address] 09/01/2020 12/17/19 21 2 Pre-ruben Flowsheet Flowsheet Date 04/16/2020 Pappas Score Blood Edema Fundus Height Fundus Units Glucose Ketones Leukocytes Nitrite Labor Signs Protein Cervic Dilation Cervic Effacement Cervic Station Type Weight in lbs Pre/Post Dialysis Refused BP Diastolic BP Location Tested BP Systolic BP Type 84 126 sitting Fetus Heart Rate Present Fetus Movement Comments Initial visitPrior care haris ng this ? no, third with [place], 4th overall. Initially surprised and has worked through to acceptance. Uncertain dates.Dating ultrasound completed or ordered?yesClient's thoughts on this : adjusting well.Health Histories in chart updated/reviewed with client.Discussed nutrition, hydration, exercise, supplements (PNV, Vit D, Caliente 3s) and promotion of .Advised regarding weight gain, food cautions, sibling prep, parenting, self care and mental wellness.Genetic screening informed consent provided. Informed regarding options and timeline.Recommended CBE and warp knit operator care, resources provided. Relevant OB history reviewed, concerns/questions addressed:Orientation provided with tour.Instructions on reaching bowling or skating front desk clerk owner consulting engineer by phone (preferred) and reviewed appropriate use of patient portal.Risk factors for care per [facility] [place] [facility] Policy and Procedure Manual reviewed with client who meets criteria for CENTER at this time.Mental health status assessed by EPDS.Education checklist reviewed.Time utilized for assessment of patient and/or reviewing chart, test results, setting follow up plan, coordinating care= 60 minutes.RTC 4-6 Flowsheet Date 04/18/2020 Pappas Score Blood Edema Fundus Height Fundus Units Glucose Ketones Leukocytes Nitrite Labor Signs Protein Cervic Dilation Cervic Effacement Cervic Station Type Weight in lbs Pre/Post Dialysis Refused BP Diastolic BP Location Tested BP Systolic BP Type Fetus Heart Rate Present Fetus Movement Comments PC: Explained US results to client, IUP, 2mm pole, too early to see cardiac activity. Follow up order sent to [facility], client comfortable with scheduling in 2-3 weeks and return scheduled as well. [facility] Flowsheet Date 06/26/2020 Pappas Score Blood Edema Fundus Height Fundus Units Glucose Ketones Leukocytes Nitrite Labor Signs Protein Cervic Dilation Cervic Effacement Cervic Station Type Weight in lbs Pre/Post Dialysis Refused Weight 184.980322179094 BP Diastolic BP Location Tested BP Systolic BP Type 72 114 sitting Fetus Heart Rate Present A 153 Present Fetus Movement A No Comments Feeling well. Presents with 2 children. Reviewed testing options and R/B/A for genetic screening and/or AFP; Domenica declines all screening. 20 week ultrasound ordered for [facility] in [place] per Domenica's request.. Discussed PTL prec and when to call vs use portal. Time utilized for assessment of patient and/or reviewing chart, test results, setting follow up plan, coordinating care= 15 minutes.RTC 5 weeks; I offered virtual visit, as she lives far away; Domenica declines. Niru Robles CNM Flowsheet Date 07/31/2020 Pappas Score Blood Edema Fundus Height Fundus Units Glucose Ketones Leukocytes Nitrite Labor Signs Protein Cervic Dilation Cervic Effacement Cervic Station 20 wks Type Weight in lbs Pre/Post Dialysis Refused Weight 191.983474349676 BP Diastolic BP Location Tested BP Systolic BP Type 50 92 sitting Fetus Heart Rate Present A 140 Present Fetus Movement A Yes Comments Feeling good. Here with her 3 children today. They are eating Cheetos and are well behaved. Headaches she was getting in the first trimester are gone now. GDM screening recommended between 24-28 wks gest. with appropriate intake prior to testing, timing of testing, testing process and method. Next visit scheduled. Ultrasound has not been done yet, but she has it scheduled. No questions or concerns. Knows how to call if she has any concerns. Time utilized for assessment of patient and/or reviewing chart, test results, setting follow up plan, coordinating care= 30 minutes. RTC 4-6 -SG Flowsheet Date 09/01/2020 Pappas Score Blood Edema Fundus Height Fundus Units Glucose Ketones Leukocytes Nitrite Labor Signs Protein Cervic Dilation Cervic Effacement Cervic Station 25 cm none Type Weight in lbs Pre/Post Dialysis Refused Weight 198.075842906915 BP Diastolic BP Location Tested BP Systolic BP Type 69 113 sitting Fetus Heart Rate Present A 140 Present Fetus Movement A Yes Comments Domenica here with children [place] and [place] today. Feeling well, having a boy, kids excited. Reports she usually gains about 74 lbs during ; feels she's about on track for similar weight gain this time (weight gain to date: 28 lbs). Eating about the same as with other pregnancies, notes she likes candy, takeout, fast food, but also eats sandwiches, vegetables, salads; states diet is similar to how she eats when not but weight increases quickly during . Notes weight comes off without issues after when . Discussed nutrition in and provided Rosina Cantrell book for her review. Also discussed exercise; stays active caring for children. Diabetes screening today, declines syphilis re-screen. Reviewed US. Declines mood concerns; EPDS = 0. Regularly feeling FM. Reviewed PTL warning signs. Discuss TDaP at next PNV. Time utilized for assessment of patient and/or reviewing chart, test results, setting follow up plan, coordinating care= 25 minutes. RTC 4-6. Flowsheet Date 10/01/2020 Pappas Score Blood Edema Fundus Height Fundus Units Glucose Ketones Leukocytes Nitrite Labor Signs Protein Cervic Dilation Cervic Effacement Cervic Station 30 cm none Type Weight in lbs Pre/Post Dialysis Refused Weight 204.840365659661 BP Diastolic BP Location Tested BP Systolic BP Type 78 118 sitting Fetus Heart Rate Present A 140's Present Fetus Movement A Yes Comments Have you breastfed in the pa [place]? If so, did you meet you goals? Do you have any other concerns about ?Domenica is here with her children for a LENNIE. Feeling well. Regularly feeling FM. Reviewed PTL warning signs. No swelling or RUQ pain but does have headaches. States this is her baseline even outside of . Encouraged her to try magnesium. Declines Tdap and breast pump prescription today. Meets criteria for BC. Time utilized for assessment of patient and/or reviewing chart, test results, setting follow up plan, coordinating care= 30 minutes. RTC 4 Flowsheet Date 11/04/2020 Pappas Score Blood Edema Fundus Height Fundus Units Glucose Ketones Leukocytes Nitrite Labor Signs Protein Cervic Dilation Cervic Effacement Cervic Station 34 cm none Type Weight in lbs Pre/Post Dialysis Refused Stated 215.330309789528 BP Diastolic BP Location Tested BP Systolic BP Type 82 118 sitting Fetus Heart Rate Present A 130 Present Fetus Movement A Yes Comments Domenica is here with her s on [place] today. Feeling okay but hips and pelvis are hurting. Is not seeing a chiropractor at this time. She is open to this. Encouraged chiropractor and magnesium. Magnesium was recommended last visit as well and she forgot about it. Reviewed late relief of symptoms/sleep/ promotion and choosing provider for baby. Discussed medications. Will NOT do Hep B and eye ointment. Will do Vitamin K drops and knows they will have to bring these to the . Discussed a plan and she states she doesn't have one. Encouraged her to think about desires and wishes. GBS informed consent reviewed for testing and treatment. Time utilized for assessment of patient and/or reviewing chart, test results, setting follow up plan, coordinating care= 30 minutes. RTC 2 w-SG Flowsheet Date 11/20/2020 Pappas Score Blood Edema Fundus Height Fundus Units Glucose Ketones Leukocytes Nitrite Labor Signs Protein Cervic Dilation Cervic Effacement Cervic Station 37 cm none Type Weight in lbs Pre/Post Dialysis Refused With clothes 216.020194961832 BP Diastolic BP Location Tested BP Systolic BP Type 75 117 sitting Fetus Heart Rate Present A 135 Present Fetus Movement A Yes Comments Domenica here with children for routine PNV. Feeling well, states fairly straightforward for her, similar to previous pregnancies, endorses some pelvic pain and constipation, managing alright. Wanted it noted that she received permission from someone at [place] to not have wear mask during labor due to a history of breathing issues. Reviewed PP support preparation, has good family support. GBS self collected today, has been negative every time previously, endorses allergy to penicillin. Discussed heavy bleeding after last births and option for active management, agrees to prophylactic Pitocin during 3rd stage of labor. Declines flu and COVID-19 vaccination in , discussed being as careful as possible to avoid COVID-19 exposure, states she does not go out much. EPDS: 0, declines mood concerns, does get a bit weepy with lack of sleep. Time utilized for assessment of patient and/or reviewing chart, test results, setting follow up plan, coordinating care= 45 minutes. RTC 1-2 weeks and weekly thereafter. Flowsheet Date 12/09/2020 Pappas Score Blood Edema Fundus Height Fundus Units Glucose Ketones Leukocytes Nitrite Labor Signs Protein Cervic Dilation Cervic Effacement Cervic Station 39 cm Type Weight in lbs Pre/Post Dialysis Refused With clothes [id number] BP Diastolic BP Location Tested BP Systolic BP Type 79 117 sitting Fetus Heart Rate Present A 145 Present Fetus Movement A Yes Comments Domenica is here today acco mpanied by two of her children (Daniella and Castillo). She is feeling well overall though she endorses some normal discomforts in including low back pain (was previously advised to try day care assistant but this doesn't work for her schedule/life). Encouraged heat, massage, and balance of activity/rest. Ready for baby, +FM. [place] lives [place] 55 minutes from the center and we discussed letting us know as early as possible if labor is suspected and to come into . She has extra towels/blankets in her car and we briefly talked about what to do if baby is born on the way to [place]. GBS-. No other concerns or questions today. RTC weekly. Time utilized for assessment of patient and/or reviewing chart, test results, setting follow up plan, coordinating care= 25 minutes. Flowsheet Date 12/12/2020 Pappas Score Blood Edema Fundus Height Fundus Units Glucose Ketones Leukocytes Nitrite Labor Signs Protein Cervic Dilation Cervic Effacement Cervic Station Type Weight in lbs Pre/Post Dialysis Refused BP Diastolic BP Location Tested BP Systolic BP Type Fetus Heart Rate Present Fetus Movement Comments Domenica paged at 5100 on to report possible early labor, page returned at 0365. Notes bloody show yesterday starting around 2 pm, with ctx starting around 4 pm that resolved; woke up again at 2 am today but had ctx slow down in morning and orange picker machine operator again around [id number]. Ctx now about 8-10 minutes apart, mild-moderate, denies LOF or urge to push, feels ctx are getting stronger. Lives about 55 min from center. Active FM. Will be dropping kids off in [place], thinking of staying there for a bit. Discussed options including in-person evaluation or staying in touch via phone to see if ctx get closer together; encouraged to prepare to come to center. Reviewed reasons to call immediately including SROM, SUTP, closer ctx. Domenica VU and agreement, plans to get ready and take kids to family members' house, will touch base with OCMW around 1900 if not sooner. UPDATE at 1945: States contractions not getting closer, having pressure with them, but not really increasing in intensity. Unusual labor pattern for her. Has drunk slightly less water than usual. Feels not much changes contraction pattern though feels more intense when sitting down. Discussed this labor pattern can be more common after having had a few babies and reviewed options, including resting with family or in hotel room near center to see what happens, taking a bath, trying to do activities that make contractions more intense, or coming in for evaluation; Domenica opts for in- person evaluation due to distance from home to assist with planning process. Plan to meet at [place] around 2014. -LJ Flowsheet Date 12/12/2020 Pappas Score Blood Edema Fundus Height Fundus Units Glucose Ketones Leukocytes Nitrite Labor Signs Protein Cervic Dilation Cervic Effacement Cervic Station Uterine Contract ions 4cm 50% -1 Type Weight in lbs Pre/Post Dialysis Refused BP Diastolic BP Location Tested BP Systolic BP Type 83 122 sitting Fetus Heart Rate Present A 140 Present Fetus Movement A Yes Comments Domenica presents with part asha Rojas for evaluation due to prodromal labor. Both deny recent exposure and s/sx of COVID-19. Of note Domenica is experiencing nasal congestion but notes seasonal allergies and dust exposure today due to ripping out carpet in home. See OB flowsheet for triage phone calls of 12/12/2020 preceding this visit. Reports having episodes of contractions since 12/11 that get as close as 4 min apart (for 40 min total) but are more commonly 8-10 min apart lasting ~60s, mild-moderate. Lives 55 min from center and has a history of efficient labors once contractions are regular. Finds this pattern unusual for her and frustrating. Denies leaking of fluid, endorses active movement and bloody show in last 24 hours. SVE: 4/50/-1, soft, mid, vertex. Ctx per observation approximately Q7-10 min, mild per palpation. Discussed this type of labor can be more common with increasing parity and provided reassurance. Reviewed options including going home, remaining closer to center for the night (hotel or family member's house), staying at [place] for a couple of hours and bouncing on ball to see if labor progresses as she notes ctx are more intense with sitting upright. Recommended hydration, bath, and rest as optimal. Domenica elects to go home at this time and await regular contractions. Encouraged to page OCMW back promptly also with SROM, urge to bear down, questions, or concerns. Answered numerous questions from partner about labor patterns, emergency childbirth at home if labor were to progress quickly (advised calling 911 and paging OCMW), and potential timelines. Time utilized for assessment of patient and/or reviewing chart, test results, setting follow up plan, coordinating care= 25 minutes. RTC next week for routine PNV, sooner as needed. Flowsheet Date 12/13/2020 Pappas Score Blood Edema Fundus Height Fundus Units Glucose Ketones Leukocytes Nitrite Labor Signs Protein Cervic Dilation Cervic Effacement Cervic Station Type Weight in lbs Pre/Post Dialysis Refused BP Diastolic BP Location Tested BP Systolic BP Type Fetus Heart Rate Present Fetus Movement Comments Flowsheet Date 12/15/2020 Pappas Score Blood Edema Fundus Height Fundus Units Glucose Ketones Leukocytes Nitrite Labor Signs Protein Cervic Dilation Cervic Effacement Cervic Station Type Weight in lbs Pre/Post Dialysis Refused BP Diastolic BP Location Tested BP Systolic BP Type 90 130 Fetus Heart Rate Present Fetus Movement Comments Flowsheet Date 02/19/2021 Pappas Score Blood Edema Fundus Height Fundus Units Glucose Ketones Leukocytes Nitrite Labor Signs Protein Cervic Dilation Cervic Effacement Cervic Station Type Weight in lbs Pre/Post Dialysis Refused With clothes [id number] BP Diastolic BP Location Tested BP Systolic BP Type 76 120 sitting Fetus Heart Rate Present Fetus Movement Comments Menstrual History Last Menstrual Date Menses Monthly On Bcp Conception Prior Menses Frequency Hcg Plus Date Menarche Onset Age 1 Genetic Screening And Infection History Question Response Note Recent Travel History Outside of Country false Age Will Be 35 Years Or Older At Estimated Due D ate false Thalassemia; MCV < 80 false Neural Tube Defect (Meningomyelocele, Spina Bifi da, Or Anencephaly) false Family history of Congenital Heart Defect false Family history of Down Syndrome false Zack-Sachs false Sickle Cell Disease Or Trait false Hemophilia Or Other Bleeding Disorders false Family history of Muscular Dystrophy false Family history or Carrier of Cystic Fibrosis fal se Fahad's Chorea false Family history of Intellectual disability/Autism false Inherited Genetic Or Chromosome Disease false Metabolic Disorder (eg, Type 1 Diabetes, PKU) fa lse Either parent with defect not already stat ed false Recurrent loss or history of stillbirt h (>20 weeks) false Medications (including Supplements, Vitamins, He rbs, OTC Drugs) false Tuberculosis (TB) exposure false Genital Herpesvirus false Rash Or Viral Illness while false History of STI or recent PID false Prior GBS-infected child false Plans and Education First Trimester Discussed Date Discussion Item Discussion Note Discuss ed By 06/03/2021 Activity-work,fitness,sex,posture [facility] 06/03/2021 Meets criteria for care c [facility] 06/03/2021 Take Vitamin D 2,000 -5,000IU daily: [email or web address] [facility] 06/03/2021 Prepreg BMI/Recommended Wt Gain [facility] 06/03/2021 Safety (medications, supplements, seat belts, teratogens, etc) [facility] 06/03/2021 Genetic Screening [facility] 06/03/2021 Free from intimate partner violence [facility] 06/03/2021 Use of portal, prefe r calls to owner consulting engineer line [facility] 06/03/2021 Orientation to Sunny w: philosophy, model of care, how to reach us [facility] 06/03/2021 PDR started [facility] 06/03/2021 Had/Desires flu vacc ine this -Note with order (document refusal) [facility] 06/03/2021 Food Safety/Specific dietary adjustments addressed [facility] Second Trimester Discussed Date Discussion Item Discussion Note Discuss ed By 06/26/2020 Initial Labs Reviewed/Discussed [email or web address] 06/26/2020 Anatomy Scan Ordered/Reviewed [email or web address] 09/01/2020 24-28wk labs: GCT, H gb, mariya screen 09/01/2020 CBE Declines CBE 06/26/2020 Genetic screening re andrew received/reviewed [email or web address] 09/01/2020 Rhogam PRN N/A 09/01/2020 Meets criteria for BC care l [email or web address] 09/01/2020 Free from intimate p artner violence 09/01/2020 Nutrition/Hydration reassessment done Advised re: diet and provided Rosina Cantrell book 06/26/2020 Use of portal, prefe r calls to owner consulting engineer line [email or web address] Third Trimester Discussed Date Discussion Item Discussion Note Discuss ed By 11/20/2020 Sibling preparation advised/resources provided 11/20/2020 Center class completed gave handout s at 36w 06/03/2021 Meets criteria for BC care c [facility] 11/20/2020 EPDS/PP Support team /PPD awareness 06/03/2021 Total weight gain pr ior to = 51# [facility] 10/01/2020 went well previously nhunte [email or web address] 06/03/2021 PDR- data entered [facility] 06/03/2021 [facility] Episode updated in [email or web address] 11/20/2020 Discussion regarding plan has permission to not wear mask during labor due to breathing difficulties [id number] 10/01/2020 PTL/[facility] [email or web address] 11/04/2020 Free from intimate p artner violence [id number] 06/03/2021 PDR- section clued emann 11/04/2020 education (n ewborn screening, jaundice, SIDS/safe sleeping position, car seat) Declines eye ointment and Hep B. Will bring their own Vitamin K drops; considering IM (plans circ) [id number] 10/01/2020 Tdap offered declined; also d eclined flu and COVID-19 vaccination [email or web address] 10/01/2020 Benefits of warp knit operator/referrals declined [email or web address] 10/01/2020 Peds provider entered above Boni Gray [email or web address] 06/03/2021 Chart reviewed for completeness prior to closing episode cl[facility] 11/20/2020 Problem List Updated yvonne 11/20/2020 S/sx of labor, when to call, owner consulting engineer bowling or skating front desk clerk #. 10/01/2020 PDR-3rd trimester update done [email or web address] 11/04/2020 Use of portal, prefe r calls to owner consulting engineer line [email or web address] Delivery Information Delivery Date Delivery Type Labor Anesthesia Weeks Gestation Incision Type Labor Labor Length Hrs Delivered By Post Complications Tubal Sterilization Discharge Date Comments Sponta neous None 39.4 false 3 Brittney Shirley INFORMATION SECURITY CONSULTANT None 12/13/2020 Discharge Information Feeding Method Contraceptive Method Maternal HG B and HCT Levels Breast Condom
[2024-12-23 16:12] VITALS: BP 129/88; PULSE 102; RESP 18; TEMP 36.4; O2SAT 97; BMI 32.6
--- NOTE | 2024-12-23 16:45 | ED.GENADULT ---
HPI - General Adult General Date Seen: 12/23/24 Chief complaint: Shortness of Breath/Dyspnea Stated complaint: Shortness of breath Time Seen by Provider: 12/23/24 16:33 History of Present Illness HPI narrative: 34-year-old female who is in the ER today with difficulty catching her breath. Symptoms began yesterday evening and woke her up last night. She just started to feel little bit more short of breath like she had to work harder than normal to breathe. No chest pain. She does have a mild, nonproductive cough. She does not smoke. No history of asthma or other chronic lung problems. Per medical record she had a checkup with Dr. Cody in September 2023. She was on iron for anemia. She does report that she recently ran out of iron. She has not had any long-term trouble with anemia or shortness of breath or other fatigue. She works as a lunch lady. She has no known specific exposures but recognizes that she could have been exposed to many different colds or infections at work. None of her children or her are sick with any symptoms. She also has environmental allergies and has been dealing with a stuffy nose all fall long. Her nose is stuffy today. Not definitely more stuffy than normal. Related Data Previous Rx's ?Medication ?Instructions ?Recorded albuterol sulfate 90 mcg/actuation 2 puff inhalation Q2-4H PRN 12/23/24 aerosol inhaler (Ventolin HFA) shortness of breath or wheezing #8.5 grams prednisone 20 mg tablet 40 mg (2 x 20 mg) PO DAILY 5 days 12/23/24 #10 tabs Allergies Allergy/AdvReac Type Severity Reaction Status Date / Time amoxicillin Allergy Severe Tongue Verified 10/13/23 10:19 swelling Penicillins Allergy Severe Tongue Verified 10/13/23 10:19 Swelling PFSH PFSH Family History (Updated 11/05/21 @ 12:02 by Tanna Cody CNP) Sister Colon cancer Mother Colon cancer Father No problems noted. Maternal Grandfather Stroke Social History Smoking Status: Never smoker Exam Narrative: Exam Narrative: Constitutional: Appears well-developed and well-nourished. Alert. Conversant. Non toxic. HENT: Head: Atraumatic. TMs normal bilaterally. Nose: Nose normal. She has a sniffle but no rhinorrhea Mouth/Throat: Oral mucosa is clear and moist. no trismus. Pharynx normal. Tonsils symmetric. No tonsillar enlargement, erythema, or exudate. Eyes: Conjunctivae normal. EOM normal. Pupils equal, round, and reactive to light. No scleral icterus. Neck: Normal range of motion. Neck supple. No tracheal deviation present. No JVD Cardiovascular: Normal rate, regular rhythm. No gallop. No friction rub. No murmur heard. Symmetric radial artery pulses Pulmonary/Chest: Effort normal. No stridor. No respiratory distress. No wheezes. Intermittent right-sided mostly right upper lobe rales, but they seem to clear with repeat inspirations. No rhonchi . No tenderness. Abdominal: Soft.. No distension. No mass. No tenderness. No rebound. No guarding. Musculoskeletal: RUE: Normal range of motion. No tenderness. No deformity LUE: Normal range of motion. No tenderness. No deformity RLE: Normal range of motion. No edema. No tenderness. No deformity LLE: Normal range of motion. No edema. No tenderness. No deformity Lymph: No cervical adenopathy. Neurological: Alert and oriented to person, place, and time. Normal strength. CN II-VII intact. No sensory deficit. GCS eye subscore is 4. GCS verbal subscore is 5. GCS motor subscore is 6. Normal coordination Skin: Skin is warm and dry. No rash noted. No pallor. Normal capillary refill. Psychiatric: Normal mood. Normal affect. Const: Vital Signs, click to edit/add: Vital Signs - 24 hr 12/23/24 16:12 Temperature 97.6 F Pulse Rate [Pulse Oximeter] 102 H Respiratory Rate 18 Blood Pressure [Ri ght Upper Arm] 129/88 Pulse Oximetry 97 Oxygen Delivery Me thod Room Air Course Vital Signs Vital signs: Initial Vital Signs Temperature 97.6 F 12/23/24 16:12 Temperature Source Temporal Artery Scan 12/23/24 16:12 Pulse Rate 102 H 12/23/24 16:12 Respiratory Rate 18 12/23/24 16:12 Blood Pressure 129/88 12/23/24 16:12 Blood Pressure Mean 101 12/23/24 16:12 Blood Pressure Position Sitting 12/23/24 16:12 Pulse Oximetry 97 12/23/24 16:12 Oxygen Delivery Method Room Air 12/23/24 16:12 Vital Signs Temperature 97.6 F 12/23/24 16:12 Pulse Rate 102 H 12/23/24 16:12 Respiratory Rate 18 12/23/24 16:12 Blood Pressure 129/88 12/23/24 16:12 Pulse Oximetry 97 12/23/24 16:12 Oxygen Delivery Method Room Air 12/23/24 16:12 Temperature 97.6 F 12/23/24 16:12 Pulse Rate 102 H 12/23/24 16:12 Respiratory Rate 18 12/23/24 16:12 Blood Pressure 129/88 12/23/24 16:12 Pulse Oximetry 97 12/23/24 16:12 Oxygen Delivery Method Room Air 12/23/24 16:12 Medications Administered Medications: Discontinued Medications Generic Name Dose Route Start Last Admin Trade Name Freq PRN Reason Stop Dose Admin Albuterol 2.5 mg 12/23/24 18:23 12/23/24 18:33 Albuterol Sulfate 2.5 Mg/3 Ml Vial.Neb NEB 12/23/24 18:24 2.5 mg ONCE ONE Administration Oxymetazoline HCl 1 spray 12/23/24 18:52 12/23/24 18:57 Oxymetazoline 0.05% Nasal [place] NOSTRIL-B 1 spray BID PRN Administration Prednisone 40 mg 12/23/24 18:52 12/23/24 18:57 Prednisone 20 Mg Tablet PO 12/23/24 18:53 40 mg ONCE ONE Administration Medical Decision Making [facility] Narrative Medical decision making narrative: This patient presents to the ER today for evaluation of shortness of breath without any chest pain. She does have a mild cough and nasal congestion but the nasal congestion for really is chronic.. Differential was broad. Consider possible URI. This may be viral syndrome. COVID/influenza/RSV PCR is negative. On clinical exam she does have some intermittent scattered rales mostly in the right lung field which leads to consideration for pneumonia. Chest x-ray however is clear. Prior differential is considered. No evidence of palpitations, syncope or other cardiac dysrhythmia. EKG shows sinus rhythm. We considered possible ACS with an atypical presentation (she is not having any pain, just mild shortness of breath since last night), however workup with EKG and troponin is negative. HEART score is 1. Given time since onset of symptoms, I do not think the patient needs to be admitted for further sets of enzymes. EKG shows no evidence for pericarditis. Clinical presentation not suggestive of myocarditis. Chest x-ray shows no evidence for pneumonia, pneumothorax, pulmonary edema, pleural effusion, rib fracture, cardiomegaly. We considered PE for this patient. She is overall low risk but cannot rule out by PERC because she did present with a sinus tachycardia at heart rate of 2. D-dimer is normal. At this point risk of radiation and contrast exposure would outweigh the benefit of CT PA. She has a history of iron deficiency anemia, but hemoglobin is normal today at 14.3. On initial exam she was really not wheezy but on repeat exam she is definitely wheezing more. We administered an albuterol neb and on 30 exam wheezes are improved but not completely resolved. She notes symptomatic improvement with the neb. At this point I suspect this is probably bronchospasm contributing to her shortness of breath. She has no history of asthma. I wonder if this may be viral induced wheezing or possibly allergies. Will put her on a 5 day burst of prednisone and prescription for albuterol inhaler. At this point she is not having any respiratory distress, hypoxia, or other signs that she will need admission. With reasonable clinical confidence, I think the patient is safe for outpatient follow up. Discussed return precautions. Questions answered. Patient voices comfort with the plan. Lab Data Labs: Lab Results 12/23/24 12/23/24 12/23/24 Range/Units 17:00 17:10 17:15 WBC 7.18 (4.50-11.00) K/uL RBC 4.69 (4.00-5.20) m/uL Hgb 14.3 (12.0-16.0) gm/dL Hct 43.1 (33.0-51.0) % MCV 92 (80-100) fL MCH 31 (26-34) pg MCHC 33 (32-36) gm/dL RDW Coeff of Sanket 11.8 (11.5-15.5) % Plt Count 315 (140-440) K/uL Neut % (Auto) 60.6 (42.0-72.0) % Lymph % (Auto) 20.5 (20-44) % [place] % (Auto) 5.0 (0.0-11.0) % Eos % (Auto) 13.0 H (0.0-7.0) % Baso % (Auto) 0.8 (0.0-3.0) % Neut # (Auto) 4.35 (1.7-7.0) K/uL Lymph # (Auto) 1.47 (0.90-2.90) K/uL Bourbon # (Auto) 0.40 (0.00-0.90) K/UL Eos # (Auto) 0.90 H (0.00-0.50) K/uL Baso # (Auto) 0.06 (0.00-0.30) K/uL Abs Immat Gran (auto) 0.01 (0.00-0.30) K/uL Imm/Tot Granulo (auto) 0.1 % D-Dimer Quant (PE/DVT) 0.35 (0.00-0.50) ug/ml Sodium 138 (135-149) mmol/L Potassium 4.1 (3.6-5.1) mmol/L Chloride 99 (96-114) mmol/L Carbon Dioxide 25 (20-32) mmol/L Anion Gap 14 (7-15) mEq/L BUN 13 (5-24) mg/dL Creatinine 0.7 (0.5-1.5) mg/dL Estimated Creat Clear 96.86 Estimated GFR 116 ml/min Glucose 79 (60-115) mg/dL Calcium 9.4 (8.4-10.6) mg/dL SARS-CoV-2 (PCR) Negative SARS-CoV-2 (Negative) Influenza Type A (PCR) Negative PCR FLU A (Negative) Influenza Type B (PCR) Negative PCR FLU B (Negative) RSV (PCR) Negative PCR RSV (Negative) POC Troponin I 0.00 L (0.01-0.04) ng/ml Imaging Data Chest x-ray: Attestation: I have reviewed the pertinent imaging results. My impression: No acute infiltrate Radiologist's impression: IMPRESSION: No acute cardiopulmonary process. ECG Data Attestation: I personally reviewed and interpreted this ECG as follows: Interpretation: Sinus rhythm Rate 84 LA interval 160 Normal QRS axis No ST segment elevation or depression Normal T-waves QT 364, QTC 430 Discharge Plan Discharge Clinical Impression: Wheezing, URI, acute Patient Disposition: Home, Self-Care Condition: Stable Instructions: Upper Respiratory Infection (DC), Wheezing (ED) Additional Instructions: As we discussed, I suspect that your symptoms are being driven by a viral infection or allergies. However this time we are noticing the your having significant inflammation and spasming in the bronchial tubes of your lungs. These are making you wheezy, almost like an asthma attack. To treat this you can use your inhaler 2 puffs every 2-4 hours if needed and a course of prednisone 40 mg per day for 5 days. If you notice worsening trouble breathing, high fever, chest pain, bloody cough, or have any other problems, please come back to the ER right away. If you are not dramatically improved within 48 hours, please come back to the ER or see your doctor for a recheck. Prescriptions: New albuterol sulfate [Ventolin HFA] 90 mcg/actuation HFA aerosol inhaler 2 puff inhalation Q2-4H PRN (Reason: shortness of breath or wheezing) Qty: 8.5 0RF prednisone 20 mg tablet 40 mg PO DAILY 5 Days Qty: 10 0RF Follow Up/Referrals: Tanna Cody, TRANSIT COACH OPERATOR [Primary Care Provider, Family Practice] Stand Alone Forms: Work/School Release, EventSorbetth Info Instructions
--- NOTE | 2024-12-23 16:59 | CRLHL7_ITS ---
For Patients: As a result of the Cures Act, medical imaging exams and procedure reports are released immediately into your electronic medical record. You may view this report before your referring provider. If you have questions, please contact your health care provider. INDICATION: : SOB, COUGH, RIGHT UPPER RALES COMPARISON: None TECHNIQUE: Two view(s) of the chest FINDINGS: The cardiomediastinal silhouette and pulmonary vasculature are unremarkable. There is no focal airspace consolidation, pleural effusion, or pneumothorax. No displaced fractures. IMPRESSION: No acute cardiopulmonary process. Dictated by El Dawn MD @ 12/23/2024 5:26:24 PM (Electronically Signed)
[2024-12-23 17:29] LABS: Hematocrit* 43.1 % (33.0-51.0); Hemoglobin* 14.3 gm/dL (12.0-16.0); Immature Granulocytes Abs Auto 0.01 K/uL (0.00-0.30); Immature Granulocytes Pct Auto 0.1 %; Lymphocytes Absolute Auto 1.47 K/uL (0.90-2.90); Mean Corpuscular HGB Conc 33 gm/dL (32-36); Mean Corpuscular Hemoglobin 31 pg (26-34); Mean Corpuscular Volume 92 fL (80-100); RDW Coefficient of Variation % 11.8 % (11.5-15.5); Red Blood Count* 4.69 m/uL (4.00-5.20); White Blood Count* 7.18 K/uL (4.50-11.00)
[2024-12-23 17:32] LABS: Troponin, Point-of-Care* 0.00 ng/ml (0.01-0.04)
[2024-12-23 17:36] LABS: Slide Review Reflex No
[2024-12-23 17:39] LABS: Chloride* 99 mmol/L (96-114); Sodium* 138 mmol/L (135-149)
[2024-12-23 17:40] LABS: Potassium* 4.1 mmol/L (3.6-5.1)
[2024-12-23 17:43] LABS: Anion Gap 14 mEq/L (7-15); Blood Urea Nitrogen* 13 mg/dL (5-24); Calcium* 9.4 mg/dL (8.4-10.6); Carbon Dioxide* 25 mmol/L (20-32); Creatinine* 0.7 mg/dL (0.5-1.5); Est. Creatinine Clearance* 96.86; Estimated Glomerular Filt Rate 116 ml/min; Glucose* 79 mg/dL (60-115)
[2024-12-23 17:53] LABS: D Dimer Quantitative* 0.35 ug/ml (0.00-0.50)
[2024-12-23 18:07] LABS: PCR FLU A Negative PCR FLU A (Negative); PCR FLU B Negative PCR FLU B (Negative); PCR RSV Negative PCR RSV (Negative); SARS PCR* Negative SARS-CoV-2 (Negative)
[2024-12-23] MEDS: ALBUTEROL SULFATE 2.5 MG/3 ML VIAL.NEB NEB (18:33)
[2024-12-23] MEDS: OXYMETAZOLINE 0.05% NASAL SPRAY 1 SPRAY NOSTRIL-B (18:57)
== END 2024-12-23 19:00 | disposition home or self-care (01) ==
PROVIDERS: Emergency Provider Emergency Medicine; PCP Nurse Practitioner Family
DX: J06.9 Acute upper respiratory infection, unspecified (principal); R06.2 Wheezing
CPT/HCPCS: 36415; 71046; 80048; 84484; 85025; 85379; 87631; 94640; 99283; 99284; J7512